=== PATIENT | male | born 1955 | race Hispanic/Latino ===

== ENCOUNTER 2021-07-17 16:26 | Inpatient (IN) | payer SELFPAY, OTHER ==
--- NOTE | 2021-07-17 17:14 | Emergency Department Report ---
HPI - General Chief Complaint: Abdominal Pain Time Seen by Provider: 07/17/21 16:57 - HPI HPI: MSE 3 The patient is a 66-year-old male present with chief complaint of cough. The patient states for 1 week he has had a cough productive of green sputum and throat irritation. Patient admits to a fever of 100 F. Patient admits to occasional nausea vomiting. Patient states he has not been vaccinated against COVID. Patient denies known sick contacts. Patient denies rhinorrhea or shortness of breath. Patient denies any other complaints ED Past Medical Hx - Past Medical History Previous Medical History?: No - Surgical History Past Surgical History?: No - Family History Family history: no significant - Social History Smoking Status: Never Smoker Substance Use Type: None ED Review of Systems ROS: Stated complaint: ABDOMINAL PAIN Other details as noted in HPI Constitutional: fever Eyes: denies: eye pain ENT: denies: throat pain Respiratory: cough. denies: shortness of breath Cardiovascular: denies: chest pain Endocrine: no symptoms reported Gastrointestinal: nausea, vomiting. denies: abdominal pain Genitourinary: denies: dysuria Musculoskeletal: denies: back pain Neurological: denies: headache Physical Exam - Physical Exam Physical Exam: GENERAL: The patient is well-developed well-nourished male lying on stretcher not appearing to be in acute distress. [] HEENT: Normocephalic. Atraumatic. Extraocular motions are intact. Patient has moist mucous membranes. NECK: Supple. Trachea midline CHEST/LUNGS: Clear to auscultation. There is no respiratory distress noted. HEART/CARDIOVASCULAR: Regular. There is no tachycardia. There is no gallop rub or murmur. ABDOMEN: Abdomen is soft, nontender. Patient has normal bowel sounds. There is no abdominal distention. SKIN: There is no rash. There is no edema. There is no diaphoresis. NEURO: The patient is awake, alert, and oriented. The patient is cooperative. The patient has no focal neurologic deficits. The patient has normal speech. GCS 15 There is no evidence of acute injury. ED Medical Decision Making - Lab Data Result diagrams: 07/17/21 17:28 07/17/21 19:01 Laboratory Tests 07/17/21 07/17/21 07/17/21 17:28 17:28 17:28 WBC 5.0 RBC 4.92 Hgb 15.5 H Hct 46.1 H MCV 94 MCH 32 MCHC 34 RDW 12.7 L Plt Count 244 Add Manual Diff Complete Total Counted 100 Seg Neuts % (Manual) 89.0 H Band Neutrophils % 1.0 Lymphocytes % (Manual) 7.0 L Reactive Lymphs % (Man) 0 Monocytes % (Manual) 3.0 Eosinophils % (Manual) 0 Basophils % (Manual) 0 Metamyelocytes % 0 Myelocytes % 0 Promyelocytes % 0 Blast Cells % 0 Nucleated RBC % Not Reportable Seg Neutrophils # Man 4.5 Band Neutrophils # 0.1 Lymphocytes # (Manual) 0.4 L Abs React Lymphs (Man) 0.0 Monocytes # (Manual) 0.2 Eosinophils # (Manual) 0.0 Basophils # (Manual) 0.0 Metamyelocytes # 0.0 Myelocytes # 0.0 Promyelocytes # 0.0 Blast Cells # 0.0 WBC Morphology Not Reportable TNR Hypersegmented Neuts Not Reportable Hyposegmented Neuts Not Reportable Hypogranular Neuts Not Reportable Smudge Cells Not Reportable Toxic Granulation Not Reportable Toxic Vacuolation Not Reportable Dohle Bodies Not Reportable Pelger-Huet Anomaly Not Reportable Alyssa Rods Not Reportable Platelet Estimate Not Reportable Clumped Platelets Not Reportable Plt Clumps, EDTA Not Reportable Large Platelets Not Reportable Giant Platelets Not Reportable Platelet Satelliting Not Reportable Plt Morphology Comment Not Reportable RBC Morphology Not Reportable Dimorphic RBCs Not Reportable Polychromasia Not Reportable Hypochromasia Not Reportable Poikilocytosis Not Reportable Anisocytosis Few Microcytosis Not Reportable Macrocytosis Not Reportable Spherocytes Not Reportable Pappenheimer Bodies Not Reportable Sickle Cells Not Reportable Target Cells Not Reportable Tear Drop Cells Not Reportable Ovalocytes Not Reportable Helmet Cells Not Reportable [place] Bodies Not Reportable [place] Rings Not Reportable [place] Cells Not Reportable Bite Cells Not Reportable Crenated Cell Not Reportable Elliptocytes Not Reportable Acanthocytes (Spur) Not Reportable Rouleaux Not Reportable Hemoglobin C Crystals Not Reportable Schistocytes Not Reportable Malaria parasites Not Reportable Christiano Bodies Not Reportable Hem Pathologist Commnt No D-Dimer Sodium 133 L Potassium 3.7 Chloride 95.3 L Carbon Dioxide 24 Anion Gap 17 BUN 18 Creatinine 0.9 Estimated GFR > 60 BUN/Creatinine Ratio 20 Glucose 121 H Calcium 8.5 Total Bilirubin 0.70 AST 48 H ALT 39 Alkaline Phosphatase 90 Lactate Dehydrogenase C-Reactive Protein Total Protein 7.2 Albumin 3.3 L Albumin/Globulin Ratio 0.8 07/17/21 07/17/21 19:01 19:01 WBC RBC Hgb Hct MCV MCH MCHC RDW Plt Count Add Manual Diff Total Counted Seg Neuts % (Manual) Band Neutrophils % Lymphocytes % (Manual) Reactive Lymphs % (Man) Monocytes % (Manual) Eosinophils % (Manual) Basophils % (Manual) Metamyelocytes % Myelocytes % Promyelocytes % Blast Cells % Nucleated RBC % Seg Neutrophils # Man Band Neutrophils # Lymphocytes # (Manual) Abs React Lymphs (Man) Monocytes # (Manual) Eosinophils # (Manual) Basophils # (Manual) Metamyelocytes # Myelocytes # Promyelocytes # Blast Cells # WBC Morphology Hypersegmented Neuts Hyposegmented Neuts Hypogranular Neuts Smudge Cells Toxic Granulation Toxic Vacuolation Dohle Bodies Pelger-Huet Anomaly Alyssa Rods Platelet Estimate Clumped Platelets Plt Clumps, EDTA Large Platelets Giant Platelets Platelet Satelliting Plt Morphology Comment RBC Morphology Dimorphic RBCs Polychromasia Hypochromasia Poikilocytosis Anisocytosis Microcytosis Macrocytosis Spherocytes Pappenheimer Bodies Sickle Cells Target Cells Tear Drop Cells Ovalocytes Helmet Cells [place] Bodies [place] Rings Andrew Cells Bite Cells Crenated Cell Elliptocytes Acanthocytes (Spur) Rouleaux Hemoglobin C Crystals Schistocytes Malaria parasites Christiano Bodies Hem Pathologist Commnt D-Dimer 768.76 H Sodium Potassium Chloride Carbon Dioxide Anion Gap BUN Creatinine Estimated GFR BUN/Creatinine Ratio Glucose 108 H Calcium Total Bilirubin AST ALT Alkaline Phosphatase Lactate Dehydrogenase 629 H C-Reactive Protein 7.40 H Total Protein Albumin Albumin/Globulin Ratio - Radiology Data Radiology results: report reviewed (Chest x-ray), image reviewed (Chest x-ray) interpreted by me: Chest [id number] bilateral infiltrates. No pneumothorax [facility] [address] [place] [address] XRay Report Signed Patient: WILMA ANGELES MR#: [id number] : 1955 Acct:[id number] Age/Sex: 66 / M ADM Date: 07/17/21 Loc: ED Attending Dr: Ordering Physician: GUIDO VELIZ MD Date of Service: 07/17/21 Procedure(s): XR chest routine 2V Accession Number(s): [id number] cc: GUIDO VELIZ MD Fluoro Time In Minutes: CHEST 2 VIEWS INDICATION / CLINICAL INFORMATION: Cough. COMPARISON: None available. FINDINGS: SUPPORT DEVICES: None. HEART / MEDIASTINUM: No significant abnormality. LUNGS / PLEURA: Moderate multifocal str eaky bilateral parenchymal disease No pneumothorax. ADDITIONAL FINDINGS: No significant additional findings. IMPRESSION: 1. Moderate bilateral Covid pneumonia Signer Name: Mirza Mishra MD Signed: 07/17/2021 5:34 PM Workstation Name: [id number] Transcribed By: TL Dictated By: Mirza Mishra MD Electronically Authenticated By: Mirza Mishra MD Signed Date/Time: 07/17/211733 DD/ 32 TD/TT: Print Cancel - Differential Diagnosis Pneumonia, bronchitis, COVID Critical care attestation.: If time is entered above; I have spent that time in minutes in the direct care of this critically ill patient, excluding procedure time. ED Disposition Clinical Impression: Suspected COVID-19 virus infection, Bilateral pneumonia, Hypoxia Disposition: ADMITTED INPATIENT Is pt being admited?: Yes Does the pt Need Aspirin: No Condition: Fair Instructions: Bacterial Pneumonia (ED) Time of Disposition: 19:03 (Hospitalist called (Dr. Monk))
--- NOTE | 2021-07-17 17:38 | XRay Report ---
CHEST 2 VIEWS INDICATION / CLINICAL INFORMATION: Cough. COMPARISON: None available. FINDINGS: SUPPORT DEVICES: None. HEART / MEDIASTINUM: No significant abnormality. LUNGS / PLEURA: Moderate multifocal streaky bilateral parenchymal disease No pneumothorax. ADDITIONAL FINDINGS: No significant additional findings. IMPRESSION: 1. Moderate bilateral Covid pneumonia Signer Name: Mirza Mishra MD Signed: 07/17/2021 5:34 PM Workstation Name: [id number]
[2021-07-17] MEDS: BENZONATATE 100 MG CAP PO ONE ×2 (17:49→21:51)
[2021-07-17 18:22] LABS: Hematocrit 46.1 % (35.5-45.6); Hemoglobin 15.5 gm/dl (11.8-15.2); Mean Corpuscular HGB Conc 34 % (32-34); Mean Corpuscular Volume 94 fl (84-94); Platelet Count 244 K/mm3 (140-440); Red Blood Count 4.92 M/mm3 (3.65-5.03); Red Cell Distribution Width 12.7 % (13.2-15.2)
[2021-07-17 18:42] LABS: Alanine Aminotransferase 39 units/L (7-56); Albumin 3.3 g/dL (3.9-5); BUN/Creatinine Ratio 20; Blood Urea Nitrogen 18 mg/dL (9-20); Calcium 8.5 mg/dL (8.4-10.2); Hemolysis Index 1
[2021-07-17] MEDS ORDERED: dexAMETHasone 20 MG/5 ML VIAL IV ONE ×2 (19:01→22:15)
[2021-07-17] MEDS ORDERED: cefTRIAXone/NS 1 GM/50 ML 1 GM/50 ML BAG IV ONE ×2 (19:01→22:15)
[2021-07-17] MEDS ORDERED: AZITHROMYCIN/NS 500 MG/250 ML 500 MG/250 ML BAG IV ONE ×2 (19:01→22:00)
[2021-07-17 19:19] LABS: Anisocytosis Few; Band Neutrophils # (Manual) 0.1 K/mm3; Basophils % (Manual) 0 % (0.0-1.8); Eosinophils % (Manual) 0 % (0.0-4.3); Total Cells Counted 100
[2021-07-17 20:01] LABS: C-Reactive Protein 7.4 mg/dL (0.00-1.30)
[2021-07-17] MEDS ORDERED: BENZONATATE 100 MG CAP PO ONE (22:15)
[2021-07-17] MEDS ORDERED: ONDANSETRON 4 MG/2 ML INJ IV PRN (22:25)
[2021-07-17] MEDS ORDERED: ACETAMINOPHEN 325 MG TAB PO PRN (22:25)
--- NOTE | 2021-07-17 22:25 | History and Physical Report ---
History of Present Illness Date of examination: 07/17/21 Date of admission: 07/17/21 19:11 Chief complaint: Fever and cough for 1 week History of present illness: 66-year-old male with no significant past medical history comes in for fever and cough of 1 week duration. Cough productive greenish sputum. Also sore throat. Patient also admits to occasional nausea and vomiting. Patient has not been vaccinated. No loss of smell or taste. No shortness of breath. No nasal congestion. No chest pain. No chest pain. - Past Medical History Previous Medical History?: No - Surgical History Past Surgical History?: No - Family History Family history: no significant - Social History Smoking Status: Never Smoker Substance Use Type: None Review of Systems ROS: Stated complaint: ABDOMINAL PAIN Other details as noted in HPI Constitutional: fever Eyes: denies: eye pain ENT: denies: throat pain Respiratory: cough. denies: shortness of breath Cardiovascular: denies: chest pain Endocrine: no symptoms reported Gastrointestinal: nausea, vomiting. denies: abdominal pain Genitourinary: denies: dysuria Musculoskeletal: denies: back pain Neurological: denies: headache Medications and Allergies Allergies Allergy/AdvReac Type Severity Reaction Status Date / Time No Known Allergies Allergy Unverified 07/17/21 16:34 Active Meds: Active Medications Azithromycin (Zithromax/Ns) 500 mg in 250 mls @ 250 mls/hr IV ONCE ONE; Protocol Stop: 07/17/21 22:59 Ceftriaxone Sodium (Rocephin/Ns 1 Gm/50 Ml) 1 gm in 50 mls @ 100 mls/hr IV ONCE ONE; Protocol Stop: 07/17/21 22:44 Exam - Constitutional Vitals: Temp Pulse Resp BP Pulse Ox 99.2 F 73 17 122/75 91 07/17/21 21:45 07/17/21 21:45 07/17/21 21:45 07/17/21 21:45 07/17/21 22:10 General appearance: Present: no acute distress, well-nourished - EENT Eyes: Present: PERRL ENT: hearing intact, clear oral mucosa - Neck Neck: Present: supple, normal ROM - Respiratory Respiratory effort: normal Respiratory: bilateral: CTA, negative: rhonchi (Scattered) - Cardiovascular Heart rate: 78 Rhythm: regular Heart Sounds: Present: S1 & S2. Absent: rub, click - Extremities Extremities: pulses symmetrical, No edema Peripheral Pulses: within normal limits - Abdominal General gastrointestinal: Present: soft, non-tender, non-distended, normal bowel sounds Male genitourinary: Present: normal - Integumentary Integumentary: Present: clear, warm, dry - Musculoskeletal Musculoskeletal: gait normal, strength equal bilaterally - Psychiatric Psychiatric: appropriate mood/affect, intact judgment & insight - Neurologic Neurologic: CNII-XII intact, moves all extremities Results - Labs CBC & Chem 7: 07/18/21 04:03 07/18/21 04:03 Labs: Laboratory Last Values WBC 5.0 K/mm3 (4.5-11.0) 07/17/21 17: RBC 4.92 M/mm3 (3.65-5.03) 07/17/21 17: Hgb 15.5 gm/dl (11.8-15.2) H 07/17/21 17:28 Hct 46.1 % (35.5-45.6) H 07/17/21 17:28 MCV 94 fl (84-94) 07/17/21 17:28 MCH 32 pg (28-32) 07/17/21 17: MCHC 34 % (32-34) 07/17/21 17: RDW 12.7 % (13.2-15.2) L 07/17/21 17:28 Plt Count 244 K/mm3 (140-440) 07/17/21 17:28 Add Manual Diff Complete 07/17/21 17: Total Counted 100 07/17/21 17:28 Seg Neuts % (Manual) 89.0 % (40.0-70.0) H 07/17/21 17:28 Band Neutrophils % 1.0 % 07/17/21 17:28 Lymphocytes % (Manual) 7.0 % (13.4-35.0) L 07/17/21 17:28 Reactive Lymphs % (Man) 0 % 07/17/21 17:28 Monocytes % (Manual) 3.0 % (0.0-7.3) 07/17/21 17:28 Eosinophils % (Manual) 0 % (0.0-4.3) 07/17/21 17: Basophils % (Manual) 0 % (0.0-1.8) 07/17/21 17:28 Metamyelocytes % 0 % 07/17/21 17:28 Myelocytes % 0 % 07/17/21 17:28 Promyelocytes % 0 % 07/17/21 17:28 Blast Cells % 0 % 07/17/21 17:28 Nucleated RBC % Not Reportable 07/17/21 17:28 Seg Neutrophils # Man 4.5 K/mm3 (1.8-7.7) 07/17/21 17:28 Band Neutrophils # 0.1 K/mm3 07/17/21 17:28 Lymphocytes # (Manual) 0.4 K/mm3 (1.2-5.4) L 07/17/21 17:28 Abs React Lymphs (Man) 0.0 K/mm3 07/17/21 17:28 Monocytes # (Manual) 0.2 K/mm3 (0.0-0.8) 07/17/21 17:28 Eosinophils # (Manual) 0.0 K/mm3 (0.0-0.4) 07/17/21 17:28 Basophils # (Manual) 0.0 K/mm3 (0.0-0.1) 07/17/21 17:28 Metamyelocytes # 0.0 K/mm3 07/17/21 17:28 Myelocytes # 0.0 K/mm3 07/17/21 17:28 Promyelocytes # 0.0 K/mm3 07/17/21 17:28 Blast Cells # 0.0 K/mm3 07/17/21 17:28 WBC Morphology Not Reportable 07/17/21 17:28 WBC Morphology TNR 07/17/21 17:28 Hypersegmented Neuts Not Reportable 07/17/21 17:28 Hyposegmented Neuts Not Reportable 07/17/21 17:28 Hypogranular Neuts Not Reportable 07/17/21 17:28 Smudge Cells Not Reportable 07/17/21 17:28 Toxic Granulation Not Reportable 07/17/21 17:28 Toxic Vacuolation Not Reportable 07/17/21 17:28 Dohle Bodies Not Reportable 07/17/21 17:28 Pelger-Huet Anomaly Not Reportable 07/17/21 17:28 Alyssa Rods Not Reportable 07/17/21 17:28 Platelet Estimate Not Reportable 07/17/21 17:28 Clumped Platelets Not Reportable 07/17/21 17:28 Plt Clumps, EDTA Not Reportable 07/17/21 17:28 Large Platelets Not Reportable 07/17/21 17:28 Giant Platelets Not Reportable 07/17/21 17:28 Platelet Satelliting Not Reportable 07/17/21 17:28 Plt Morphology Comment Not Reportable 07/17/21 17:28 RBC Morphology Not Reportable 07/17/21 17:28 Dimorphic RBCs Not Reportable 07/17/21 17:28 Polychromasia Not Reportable 07/17/21 17:28 Hypochromasia Not Reportable 07/17/21 17:28 Poikilocytosis Not Reportable 07/17/21 17:28 Anisocytosis Few 07/17/21 17:28 Microcytosis Not Reportable 07/17/21 17:28 Macrocytosis Not Reportable 07/17/21 17:28 Spherocytes Not Reportable 07/17/21 17:28 Pappenheimer Bodies Not Reportable 07/17/21 17:28 Sickle Cells Not Reportable 07/17/21 17:28 Target Cells Not Reportable 07/17/21 17:28 Tear Drop Cells Not Reportable 07/17/21 17:28 Ovalocytes Not Reportable 07/17/21 17:28 Helmet Cells Not Reportable 07/17/21 17:28 [place] Bodies Not Reportable 07/17/21 17:28 [place] Rings Not Reportable 07/17/21 17:28 [place] Cells Not Reportable 07/17/21 17:28 Bite Cells Not Reportable 07/17/21 17:28 Crenated Cell Not Reportable 07/17/21 17:28 Elliptocytes Not Reportable 07/17/21 17:28 Acanthocytes (Spur) Not Reportable 07/17/21 17:28 Rouleaux Not Reportable 07/17/21 17:28 Hemoglobin C Crystals Not Reportable 07/17/21 17:28 Schistocytes Not Reportable 07/17/21 17:28 Malaria parasites Not Reportable 07/17/21 17:28 Christiano Bodies Not Reportable 07/17/21 17:28 Hem Pathologist Commnt No 07/17/21 17:28 D-Dimer 768.76 ng/mlDDU (0-234) H 07/17/21 19:01 Sodium 133 mmol/L (137-145) L 07/17/21 17:28 Potassium 3.7 mmol/L (3.6-5.0) 07/17/21 17:28 Chloride 95.3 mmol/L (98-107) L 07/17/21 17:28 Carbon Dioxide 24 mmol/L (22-30) 07/17/21 17:28 Anion Gap 17 mmol/L 07/17/21 17:28 BUN 18 mg/dL (9-20) 07/17/21 17:28 Creatinine 0.9 mg/dL (0.8-1.3) 07/17/21 17:28 Estimated GFR > 60 ml/min 07/17/21 17:28 BUN/Creatinine Ratio 20 % 07/17/21 17:28 Glucose 108 mg/dL (75-100) H 07/17/21 19:01 Calcium 8.5 mg/dL (8.4-10.2) 07/17/21 17:28 Ferritin 4694.0 ng/mL (30.0-300.0) H 07/17/21 19:01 Total Bilirubin 0.70 mg/dL (0.1-1.2) 07/17/21 17:28 AST 48 units/L (5-40) H 07/17/21 17:28 ALT 39 units/L (7-56) 07/17/21 17:28 Alkaline Phosphatase 90 units/L (35-129) 07/17/21 17:28 Lactate Dehydrogenase 629 units/L (91-180) H 07/17/21 19:01 C-Reactive Protein 7.40 mg/dL (0.00-1.30) H 07/17/21 19:01 Total Protein 7.2 g/dL (6.3-8.2) 07/17/21 17:28 Albumin 3.3 g/dL (3.9-5) L 07/17/21 17:28 Albumin/Globulin Ratio 0.8 % 07/17/21 17:28 Microbiology: Microbiology 07/17/21 17:28 Peripheral/Venous Blood Culture - Preliminary Culture in Progress 07/17/21 17:28 Peripheral/Venous Blood Culture - Preliminary Culture in Progress - Imaging and Cardiology Imaging and Cardiology: Chest x-ray Moderate bilateral Covid pneumonia Assessment and Plan Advance Directives: Yes (Full code) VTE prophylaxis?: Chemical Plan of care discussed with patient/family: Yes - Patient Problems (1) Acute respiratory failure with hypoxia Current Visit: Yes Status: Acute Plan to address problem: Oxygen supplementation as necessary. Patient is on 3 L nasal cannula oxygen (2) SIRS (systemic inflammatory response syndrome) Current Visit: Yes Status: Acute Plan to address problem: All inflammatory markers I am clear increased including D-dimer which is 768, ferritin is 4694 and LDH is 629 consistent with systemic inflammatory response syndrome (3) Bilateral pneumonia Current Visit: Yes Status: Acute Qualifiers: Aspiration pneumonia type: due to regurgitated food Plan to address problem: Patient initiated on IV Zithromax and IV Rocephin To discontinue if procalcitonin is normal and Covid positive (4) Suspected COVID-19 virus infection Current Visit: Yes Status: Acute Plan to address problem: Covid PCR in a.m. Patient started on IV Decadron 8 mg every 24 hours (5) Hyponatremia Current Visit: Yes Status: Acute Plan to address problem: IV normal saline for now (6) Transaminitis Current Visit: Yes Status: Acute Plan to address problem: Possible Covid related Check acute hepatitis profile (7) DVT prophylaxis Current Visit: Yes Status: Acute Plan to address problem: On anticoagulation GI prophylaxis (8) Advance care planning Current Visit: Yes Status: Acute Plan to address problem: Disease education conducted: Care plan 80 discussed, diagnosis discussed, patient is full code came, patient acknowledges understanding and agreement with care plan +30 minutes
[2021-07-17] MEDS ORDERED: oxyCODONE /ACETAMINOPHEN 5-325MG TAB PO PRN (22:27)
[2021-07-17] MEDS ORDERED: METOCLOPRAMIDE 10 MG/2 ML INJ IV PRN (22:27)
[2021-07-17] MEDS ORDERED: SODIUM CHLORIDE 0.9% 1000 ML 1,000 ML IV SCH (22:30)
[2021-07-17] MEDS: FAMOTIDINE 20 MG TAB PO SCH (23:34)
[2021-07-18 05:41] LABS: Basophils % (Auto) 0.2 % (0.0-1.8); Hemoglobin 13.9 gm/dl (11.8-15.2); Lymphocytes # (Auto) 0.4 K/mm3 (1.2-5.4); Lymphocytes % (Auto) 11.3 % (13.4-35.0); Mean Corpuscular HGB Conc 34 % (32-34); Mean Corpuscular Volume 93 fl (84-94); Monocytes # (Auto) 0.2 K/mm3 (0.0-0.8); Monocytes % (Auto) 6.1 % (0.0-7.3); Platelet Count 262 K/mm3 (140-440); Red Blood Count 4.41 M/mm3 (3.65-5.03); Red Cell Distribution Width 12.4 % (13.2-15.2)
[2021-07-18 06:02] LABS: Alanine Aminotransferase 34 units/L (7-56); Albumin 2.8 g/dL (3.9-5); BUN/Creatinine Ratio 23; Blood Urea Nitrogen 21 mg/dL (9-20); Calcium 7.9 mg/dL (8.4-10.2); Hemolysis Index 4
--- NOTE | 2021-07-18 07:58 | Progress Note ---
Assessment and Plan Assessment and plan: #Acute hypoxic respiratory failure #Bilateral pneumonia #COVID-19 PUI -Patient not requiring supplemental oxygen when evaluated today -Chest x-ray showed bilateral pneumonia -Continue with Cipro and Rocephin for now -Continue dexamethasone -Coronavirus PCR collected -D-dimer, LDH, CRP and ferritin elevated #Elevated D-dimer -CTA of chest ordered -Continue Lovenox for DVT prophylaxis #Oral thrush -Nystatin swish and swallow ordered -HIV test ordered, patient agreeable Disposition Plan: continue medical management History Interval history: No acute events overnight. Patient reports not having shortness of breath, chest pain, odynophagia, nausea, vomiting or diarrhea since admission. Hospitalist Physical - Physical exam Narrative exam: GENERAL: Thin male. Sitting on the side of the bed in no acute distress. HEENT: Thrush on tongue. NECK: Supple. CHEST/LUNGS: CTAB on room air HEART/CARDIOVASCULAR: RRR. No murmur, rubs or gallops appreciated. ABDOMEN: +BS. NT/ND. SKIN: No rashes noted. NEURO: No focal motor deficit. Follows all commands. MUSCULOSKELETAL: No joint effusion EXTREMITIES: No cyanosis, clubbing or edema. PSYCH: Cooperative. - Constitutional Vitals: Temp Pulse Resp BP Pulse Ox 97.9 F 66 16 100/73 95 07/18/21 06:58 07/18/21 06:58 07/18/21 06:58 07/18/21 06:58 07/18/21 06:58 General appearance: Present: no acute distress, well-nourished Results - Labs CBC & Chem 7: 07/18/21 04:03 07/18/21 04:03 Labs: Laboratory Last Values WBC 3.7 K/mm3 (4.5-11.0) L 07/18/21 04:03 RBC 4.41 M/mm3 (3.65-5.03) 07/18/21 04:03 Hgb 13.9 gm/dl (11.8-15.2) 07/18/21 04:03 Hct 41.0 % (35.5-45.6) 07/18/21 04:03 MCV 93 fl (84-94) 07/18/21 04:03 MCH 32 pg (28-32) 07/18/21 04:03 MCHC 34 % (32-34) 07/18/21 04:03 RDW 12.4 % (13.2-15.2) L 07/18/21 04:03 Plt Count 262 K/mm3 (140-440) 07/18/21 04:03 Lymph % (Auto) 11.3 % (13.4-35.0) L 07/18/21 04:03 [place] % (Auto) 6.1 % (0.0-7.3) 07/18/21 04:03 Eos % (Auto) 0.0 % (0.0-4.3) 07/18/21 04:03 Baso % (Auto) 0.2 % (0.0-1.8) 07/18/21 04:03 Lymph # (Auto) 0.4 K/mm3 (1.2-5.4) L 07/18/21 04:03 [place]irt # (Auto) 0.2 K/mm3 (0.0-0.8) 07/18/21 04:03 Eos # (Auto) 0.0 K/mm3 (0.0-0.4) 07/18/21 04:03 Baso # (Auto) 0.0 K/mm3 (0.0-0.1) 07/18/21 04:03 Add Manual Diff Complete 07/17/21 17:28 Total Counted 100 07/17/21 17:28 Seg Neutrophils % 82.4 % (40.0-70.0) H 07/18/21 04:03 Seg Neuts % (Manual) 89.0 % (40.0-70.0) H 07/17/21 17:28 Band Neutrophils % 1.0 % 07/17/21 17:28 Lymphocytes % (Manual) 7.0 % (13.4-35.0) L 07/17/21 17:28 Reactive Lymphs % (Man) 0 % 07/17/21 17:28 Monocytes % (Manual) 3.0 % (0.0-7.3) 07/17/21 17:28 Eosinophils % (Manual) 0 % (0.0-4.3) 07/17/21 17:28 Basophils % (Manual) 0 % (0.0-1.8) 07/17/21 17:28 Metamyelocytes % 0 % 07/17/21 17:28 Myelocytes % 0 % 07/17/21 17:28 Promyelocytes % 0 % 07/17/21 17:28 Blast Cells % 0 % 07/17/21 17:28 Nucleated RBC % Not Reportable 07/17/21 17:28 Seg Neutrophils # 3.0 K/mm3 (1.8-7.7) 07/18/21 04:03 Seg Neutrophils # Man 4.5 K/mm3 (1.8-7.7) 07/17/21 17:28 Band Neutrophils # 0.1 K/mm3 07/17/21 17:28 Lymphocytes # (Manual) 0.4 K/mm3 (1.2-5.4) L 07/17/21 17:28 Abs React Lymphs (Man) 0.0 K/mm3 07/17/21 17:28 Monocytes # (Manual) 0.2 K/mm3 (0.0-0.8) 07/17/21 17:28 Eosinophils # (Manual) 0.0 K/mm3 (0.0-0.4) 07/17/21 17:28 Basophils # (Manual) 0.0 K/mm3 (0.0-0.1) 07/17/21 17:28 Metamyelocytes # 0.0 K/mm3 07/17/21 17:28 Myelocytes # 0.0 K/mm3 07/17/21 17:28 Promyelocytes # 0.0 K/mm3 07/17/21 17:28 Blast Cells # 0.0 K/mm3 07/17/21 17:28 WBC Morphology Not Reportable 07/17/21 17:28 WBC Morphology TNR 07/17/21 17:28 Hypersegmented Neuts Not Reportable 07/17/21 17:28 Hyposegmented Neuts Not Reportable 07/17/21 17:28 Hypogranular Neuts Not Reportable 07/17/21 17:28 Smudge Cells Not Reportable 07/17/21 17:28 Toxic Granulation Not Reportable 07/17/21 17:28 Toxic Vacuolation Not Reportable 07/17/21 17:28 Dohle Bodies Not Reportable 07/17/21 17:28 Pelger-Huet Anomaly Not Reportable 07/17/21 17:28 Alyssa Rods Not Reportable 07/17/21 17:28 Platelet Estimate Not Reportable 07/17/21 17:28 Clumped Platelets Not Reportable 07/17/21 17:28 Plt Clumps, EDTA Not Reportable 07/17/21 17:28 Large Platelets Not Reportable 07/17/21 17:28 Giant Platelets Not Reportable 07/17/21 17:28 Platelet Satelliting Not Reportable 07/17/21 17:28 Plt Morphology Comment Not Reportable 07/17/21 17:28 RBC Morphology Not Reportable 07/17/21 17:28 Dimorphic RBCs Not Reportable 07/17/21 17:28 Polychromasia Not Reportable 07/17/21 17:28 Hypochromasia Not Reportable 07/17/21 17:28 Poikilocytosis Not Reportable 07/17/21 17:28 Anisocytosis Few 07/17/21 17:28 Microcytosis Not Reportable 07/17/21 17:28 Macrocytosis Not Reportable 07/17/21 17:28 Spherocytes Not Reportable 07/17/21 17:28 Pappenheimer Bodies Not Reportable 07/17/21 17:28 Sickle Cells Not Reportable 07/17/21 17:28 Target Cells Not Reportable 07/17/21 17:28 Tear Drop Cells Not Reportable 07/17/21 17:28 Ovalocytes Not Reportable 07/17/21 17:28 Helmet Cells Not Reportable 07/17/21 17:28 [place] Bodies Not Reportable 07/17/21 17:28 [place] Rings Not Reportable 07/17/21 17:28 [place] Cells Not Reportable 07/17/21 17:28 Bite Cells Not Reportable 07/17/21 17:28 Crenated Cell Not Reportable 07/17/21 17:28 Elliptocytes Not Reportable 07/17/21 17:28 Acanthocytes (Spur) Not Reportable 07/17/21 17:28 Rouleaux Not Reportable 07/17/21 17:28 Hemoglobin C Crystals Not Reportable 07/17/21 17:28 Schistocytes Not Reportable 07/17/21 17:28 Malaria parasites Not Reportable 07/17/21 17:28 Christiano Bodies Not Reportable 07/17/21 17:28 Hem Pathologist Commnt No 07/17/21 17:28 D-Dimer 768.76 ng/mlDDU (0-234) H 07/17/21 19:01 Sodium 130 mmol/L (137-145) L 07/18/21 04:03 Potassium 4.3 mmol/L (3.6-5.0) 07/18/21 04:03 Chloride 95.2 mmol/L (98-107) L 07/18/21 04:03 Carbon Dioxide 24 mmol/L (22-30) 07/18/21 04:03 Anion Gap 15 mmol/L 07/18/21 04:03 BUN 21 mg/dL (9-20) H 07/18/21 04:03 Creatinine 0.9 mg/dL (0.8-1.3) 07/18/21 04:03 Estimated GFR > 60 ml/min 07/18/21 04:03 BUN/Creatinine Ratio 23 % 07/18/21 04:03 Glucose 151 mg/dL (75-100) H 07/18/21 04:03 Calcium 7.9 mg/dL (8.4-10.2) L 07/18/21 04:03 Ferritin 4694.0 ng/mL (30.0-300.0) H 07/17/21 19:01 Total Bilirubin 0.50 mg/dL (0.1-1.2) 07/18/21 04:03 AST 43 units/L (5-40) H 07/18/21 04:03 ALT 34 units/L (7-56) 07/18/21 04:03 Alkaline Phosphatase 78 units/L (35-129) 07/18/21 04:03 Lactate Dehydrogenase 629 units/L (91-180) H 07/17/21 19:01 C-Reactive Protein 7.40 mg/dL (0.00-1.30) H 07/17/21 19:01 Total Protein 6.2 g/dL (6.3-8.2) L 07/18/21 04:03 Albumin 2.8 g/dL (3.9-5) L 07/18/21 04:03 Albumin/Globulin Ratio 0.8 % 07/18/21 04:03 Microbiology: Microbiology 07/17/21 17:28 Peripheral/Venous Blood Culture - Preliminary Culture in Progress 07/17/21 17:28 Peripheral/Venous Blood Culture - Preliminary Culture in Progress Active Medications - Current Medications Current Medications: Generic Name Dose Route Start Last Admin Trade Name Freq PRN Reason Stop Dose Admin Acetaminophen 650 mg 07/17/21 22:25 Acetaminophen 325 Mg Tab PO Q4H PRN Pain MILD(1-3)/Fever >100.5/KAUR Dexamethasone 8 mg 07/18/21 10:00 Dexamethasone 4 Mg/Ml Vial IV Q24HR [facility] Enoxaparin Sodium 40 mg 07/18/21 10:00 Enoxaparin 40 Mg/0.4 Ml Inj SUB-Q QDAY [facility] Famotidine 20 mg 07/17/21 23:00 07/17/21 23:34 Famotidine 20 Mg Tab PO 20 mg BID [facility] Administration Sodium Chloride 1,000 mls @ 100 mls/hr 07/17/21 22:30 Nacl 0.9% 1000 Ml IV 07/18/21 09:00 DIRECT [facility] Azithromycin 500 mg in 250 mls @ 250 mls/hr 07/18/21 10:00 Zithromax/Ns IV Q24HR [facility] Ceftriaxone Sodium 2 gm in 100 mls @ 200 mls/hr 07/18/21 10:00 Rocephin/Ns 2 Gm/100 Ml IV Q24HR [facility] Protocol Metoclopramide HCl 10 mg 07/17/21 22:27 Metoclopramide 10 Mg/2 Ml Inj IV Q6H PRN Nausea And Vomiting Ondansetron HCl 4 mg 07/17/21 22:25 Ondansetron 4 Mg/2 Ml Inj IV Q8H PRN Nausea And Vomiting Oxycodone/Acetaminophen 1 tab 07/17/21 22:27 Oxycodone /Acetaminophen 5-325mg Tab PO Q6H PRN Pain, Moderate (4-6) Sodium Chloride 10 ml 07/18/21 10:00 Sodium Chloride 0.9% 10 Ml Flush Syringe IV BID [facility] Sodium Chloride 10 ml 07/17/21 22:25 Sodium Chloride 0.9% 10 Ml Flush Syringe IV PRN PRN LINE FLUSH
[2021-07-18] MEDS: cefTRIAXone/NS 2 GM/100 ML 2 GM/100 ML BAG IV SCH (10:58)
[2021-07-18] MEDS: dexAMETHasone 4 MG/ML VIAL IV SCH (10:58)
[2021-07-18] MEDS: ENOXAPARIN 40 MG/0.4 ML INJ SUB-Q SCH (10:59)
[2021-07-18] MEDS: FAMOTIDINE 20 MG TAB PO SCH (10:59)
[2021-07-18] MEDS: AZITHROMYCIN/NS 500 MG/250 ML 500 MG/250 ML BAG IV SCH (11:24)
--- NOTE | 2021-07-18 14:35 | Cat Scan Report ---
CTA CHEST WITH CONTRAST INDICATION / CLINICAL INFORMATION: Cough. Elevated d-dimer TECHNIQUE: Axial CT images were obtained through the chest after injection of 350 cc Omnipaque 350 IV contrast. 3 plane MIP and/or 3D reconstructions were produced. All CT scans at this location are per formed using CT dose reduction for ALARA by means of automated exposure control. COMPARISON: None available. FINDINGS: PULMONARY ARTERIES: Adequate opacification bilaterally without intraluminal filling defect to suggest acute PTE. THORACIC AORTA: No significant abnormality. HEART: There is mild cardiomegaly. CORONARY ARTERY CALCIFICATION: Minimal MEDIASTINUM / SEGUNDO: No significant abnormality. PLEURA: No pleural effusion. No pneumothorax. LUNGS: There are moderately severe patchy parenchymal opacities throughout both lungs, predominantly groundglass in appearance. Scattered mild areas of consolidation and subpleural bands are present. Th ere is mild associated septal thickening. ADDITIONAL FINDINGS: None. UPPER ABDOMEN: No acute findings. SKELETAL STRUCTURES: No significant osseous abnormality. IMPRESSION: 1. No CT evidence for pulmonary embolism. 2. Moderately severe patchy parenchymal opacities throughout both lungs are probably related to atypi wade pneumonia, including viral causes. Signer Name: Kosta Magallanes MD Signed: 07/18/2021 2:30 PM Workstation Name: [id number]
[2021-07-18] MEDS: NYSTATIN 500,000 UNIT/5 ML ORAL LIQD PO SCH ×2 (16:16→23:38)
[2021-07-19] MEDS: FAMOTIDINE 20 MG TAB PO SCH ×2 (03:40→09:55)
[2021-07-19] MEDS: NYSTATIN 500,000 UNIT/5 ML ORAL LIQD PO SCH ×4 (03:43→18:03)
[2021-07-19 05:26] LABS: BUN/Creatinine Ratio 30; Blood Urea Nitrogen 24 mg/dL (9-20); Calcium 8.3 mg/dL (8.4-10.2); Hemolysis Index 3
[2021-07-19] MEDS: cefTRIAXone/NS 2 GM/100 ML 2 GM/100 ML BAG IV SCH (09:55)
[2021-07-19] MEDS: dexAMETHasone 4 MG/ML VIAL IV SCH (09:55)
[2021-07-19] MEDS: AZITHROMYCIN/NS 500 MG/250 ML 500 MG/250 ML BAG IV SCH (10:43)
[2021-07-19] MEDS: ENOXAPARIN 40 MG/0.4 ML INJ SUB-Q SCH (10:51)
--- NOTE | 2021-07-19 17:44 | Progress Note ---
Assessment and Plan Assessment and plan: --Acute hypoxic respiratory failure On 2 L supplemental oxygen --Bilateral pneumonia Pro Calcitonin level is high Continue empiric antibiotics, Follow cultures, Oxygen titrate O2 sats to more than 90% --COVID-19 PUI/rosales PCR test is positive -Patient not requiring supplemental oxygen when evaluated today -Chest x-ray showed bilateral pneumonia -Continue with Cipro and Rocephin for now -Continue dexamethasone -Coronavirus PCR collected -D-dimer, LDH, CRP and ferritin elevated --Elevated D-dimer -CTA of chest negative for PE, multifocal/viral pneumonia Check lower extremity venous Doppler to rule out DVT --Oral thrush -Nystatin swish and swallow ordered -HIV test negative Disposition Plan: continue medical management We will closely monitor the patient and adjust management as needed Plan of care reviewed with the patient and his nurse Home oxygen evaluation Possible discharge in 1 to 2 days if stable History Interval history: I have seen and examined the patient at the bedside Patient's chart and medications reviewed Patient feels slightly better than yesterday Still has mild shortness of breath Hospitalist Physical - Constitutional Vitals: Temp Pulse Resp BP Pulse Ox 98.9 F 59 L 21 113/72 92 07/19/21 09:57 07/19/21 13:00 07/19/21 13:00 07/19/21 15:15 07/19/21 15:15 General appearance: Present: no acute distress, well-nourished - EENT Eyes: Present: PERRL, EOM intact - Neck Neck: Present: supple, normal ROM - Respiratory Respiratory effort: normal Respiratory: bilateral: diminished, rhonchi, negative: rales, wheezing - Cardiovascular Rhythm: regular Heart Sounds: Present: S1 & S2 - Extremities Extremities: no ischemia, No edema - Abdominal General gastrointestinal: soft, non-tender, non-distended, normal bowel sounds - Integumentary Integumentary: Present: clear, warm - Psychiatric Psychiatric: appropriate mood/affect, cooperative - Neurologic Neurologic: no focal deficits, moves all extremities Results - Labs CBC & Chem 7: 07/18/21 04:03 07/19/21 03:48 Labs: Laboratory Last Values WBC 3.7 K/mm3 (4.5-11.0) L 07/18/21 04:03 RBC 4.41 M/mm3 (3.65-5.03) 07/18/21 04:03 Hgb 13.9 gm/dl (11.8-15.2) 07/18/21 04:03 Hct 41.0 % (35.5-45.6) 07/18/21 04:03 MCV 93 fl (84-94) 07/18/21 04:03 MCH 32 pg (28-32) 07/18/21 04:03 MCHC 34 % (32-34) 07/18/21 04:03 RDW 12.4 % (13.2-15.2) L 07/18/21 04:03 Plt Count 262 K/mm3 (140-440) 07/18/21 04:03 Lymph % (Auto) 11.3 % (13.4-35.0) L 07/18/21 04:03 [place] % (Auto) 6.1 % (0.0-7.3) 07/18/21 04:03 Eos % (Auto) 0.0 % (0.0-4.3) 07/18/21 04:03 Baso % (Auto) 0.2 % (0.0-1.8) 07/18/21 04:03 Lymph # (Auto) 0.4 K/mm3 (1.2-5.4) L 07/18/21 04:03 [place] # (Auto) 0.2 K/mm3 (0.0-0.8) 07/18/21 04:03 Eos # (Auto) 0.0 K/mm3 (0.0-0.4) 07/18/21 04:03 Baso # (Auto) 0.0 K/mm3 (0.0-0.1) 07/18/21 04:03 Add Manual Diff Complete 07/17/21 17:28 Total Counted 100 07/17/21 17:28 Seg Neutrophils % 82.4 % (40.0-70.0) H 07/18/21 04:03 Seg Neuts % (Manual) 89.0 % (40.0-70.0) H 07/17/21 17:28 Band Neutrophils % 1.0 % 07/17/21 17:28 Lymphocytes % (Manual) 7.0 % (13.4-35.0) L 07/17/21 17:28 Reactive Lymphs % (Man) 0 % 07/17/21 17:28 Monocytes % (Manual) 3.0 % (0.0-7.3) 07/17/21 17:28 Eosinophils % (Manual) 0 % (0.0-4.3) 07/17/21 17:28 Basophils % (Manual) 0 % (0.0-1.8) 07/17/21 17:28 Metamyelocytes % 0 % 07/17/21 17:28 Myelocytes % 0 % 07/17/21 17:28 Promyelocytes % 0 % 07/17/21 17:28 Blast Cells % 0 % 07/17/21 17:28 Nucleated RBC % Not Reportable 07/17/21 17:28 Seg Neutrophils # 3.0 K/mm3 (1.8-7.7) 07/18/21 04:03 Seg Neutrophils # Man 4.5 K/mm3 (1.8-7.7) 07/17/21 17:28 Band Neutrophils # 0.1 K/mm3 07/17/21 17:28 Lymphocytes # (Manual) 0.4 K/mm3 (1.2-5.4) L 07/17/21 17:28 Abs React Lymphs (Man) 0.0 K/mm3 07/17/21 17:28 Monocytes # (Manual) 0.2 K/mm3 (0.0-0.8) 07/17/21 17:28 Eosinophils # (Manual) 0.0 K/mm3 (0.0-0.4) 07/17/21 17:28 Basophils # (Manual) 0.0 K/mm3 (0.0-0.1) 07/17/21 17:28 Metamyelocytes # 0.0 K/mm3 07/17/21 17:28 Myelocytes # 0.0 K/mm3 07/17/21 17:28 Promyelocytes # 0.0 K/mm3 07/17/21 17:28 Blast Cells # 0.0 K/mm3 07/17/21 17:28 WBC Morphology Not Reportable 07/17/21 17:28 WBC Morphology TNR 07/17/21 17:28 Hypersegmented Neuts Not Reportable 07/17/21 17:28 Hyposegmented Neuts Not Reportable 07/17/21 17:28 Hypogranular Neuts Not Reportable 07/17/21 17:28 Smudge Cells Not Reportable 07/17/21 17:28 Toxic Granulation Not Reportable 07/17/21 17:28 Toxic Vacuolation Not Reportable 07/17/21 17:28 Dohle Bodies Not Reportable 07/17/21 17:28 Pelger-Huet Anomaly Not Reportable 07/17/21 17:28 Alyssa Rods Not Reportable 07/17/21 17:28 Platelet Estimate Not Reportable 07/17/21 17:28 Clumped Platelets Not Reportable 07/17/21 17:28 Plt Clumps, EDTA Not Reportable 07/17/21 17:28 Large Platelets Not Reportable 07/17/21 17:28 Giant Platelets Not Reportable 07/17/21 17:28 Platelet Satelliting Not Reportable 07/17/21 17:28 Plt Morphology Comment Not Reportable 07/17/21 17:28 RBC Morphology Not Reportable 07/17/21 17:28 Dimorphic RBCs Not Reportable 07/17/21 17:28 Polychromasia Not Reportable 07/17/21 17:28 Hypochromasia Not Reportable 07/17/21 17:28 Poikilocytosis Not Reportable 07/17/21 17:28 Anisocytosis Few 07/17/21 17:28 Microcytosis Not Reportable 07/17/21 17:28 Macrocytosis Not Reportable 07/17/21 17:28 Spherocytes Not Reportable 07/17/21 17:28 Pappenheimer Bodies Not Reportable 07/17/21 17:28 Sickle Cells Not Reportable 07/17/21 17:28 Target Cells Not Reportable 07/17/21 17:28 Tear Drop Cells Not Reportable 07/17/21 17:28 Ovalocytes Not Reportable 07/17/21 17:28 Helmet Cells Not Reportable 07/17/21 17:28 [place] Bodies Not Reportable 07/17/21 17:28 [place] Rings Not Reportable 07/17/21 17:28 [place] Cells Not Reportable 07/17/21 17:28 Bite Cells Not Reportable 07/17/21 17:28 Crenated Cell Not Reportable 07/17/21 17:28 Elliptocytes Not Reportable 07/17/21 17:28 Acanthocytes (Spur) Not Reportable 07/17/21 17:28 Rouleaux Not Reportable 07/17/21 17:28 Hemoglobin C Crystals Not Reportable 07/17/21 17:28 Schistocytes Not Reportable 07/17/21 17:28 Malaria parasites Not Reportable 07/17/21 17:28 Christiano Bodies Not Reportable 07/17/21 17:28 Hem Pathologist Commnt No 07/17/21 17:28 D-Dimer 768.76 ng/mlDDU (0-234) H 07/17/21 19:01 Sodium 138 mmol/L (137-145) D 07/19/21 03:48 Potassium 3.9 mmol/L (3.6-5.0) 07/19/21 03:48 Chloride 99.4 mmol/L (98-107) 07/19/21 03:48 Carbon Dioxide 23 mmol/L (22-30) 07/19/21 03:48 Anion Gap 20 mmol/L 07/19/21 03:48 BUN 24 mg/dL (9-20) H 07/19/21 03:48 Creatinine 0.8 mg/dL (0.8-1.3) 07/19/21 03:48 Estimated GFR > 60 ml/min 07/19/21 03:48 BUN/Creatinine Ratio 30 % 07/19/21 03:48 Glucose 154 mg/dL (75-100) H 07/19/21 03:48 Calcium 8.3 mg/dL (8.4-10.2) L 07/19/21 03:48 Ferritin 4694.0 ng/mL (30.0-300.0) H 07/17/21 19:01 Total Bilirubin 0.50 mg/dL (0.1-1.2) 07/18/21 04:03 AST 43 units/L (5-40) H 07/18/21 04:03 ALT 34 units/L (7-56) 07/18/21 04:03 Alkaline Phosphatase 78 units/L (35-129) 07/18/21 04:03 Lactate Dehydrogenase 629 units/L (91-180) H 07/17/21 19:01 C-Reactive Protein 7.40 mg/dL (0.00-1.30) H 07/17/21 19:01 Total Protein 6.2 g/dL (6.3-8.2) L 07/18/21 04:03 Albumin 2.8 g/dL (3.9-5) L 07/18/21 04:03 Albumin/Globulin Ratio 0.8 % 07/18/21 04:03 Procalcitonin 0.27 ng/mL (<0.15) 07/17/21 19:01 Coronavirus (PCR) Positive (Negative) A 07/18/21 09:10 HIV 1&2 Antibody Rapid Non react (Non React) 07/18/21 15:28 HIV P24 Antigen Non react (Non React) 07/18/21 15:28 Microbiology: Microbiology 07/17/21 17:28 Peripheral/Venous Blood Culture - Preliminary NO GROWTH AFTER 24 HOURS 07/17/21 17:28 Peripheral/Venous Blood Culture - Preliminary NO GROWTH AFTER 24 HOURS Active Medications - Current Medications Current Medications: Generic Name Dose Route Start Last Admin Trade Name Freq PRN Reason Stop Dose Admin Acetaminophen 650 mg 07/17/21 22:25 Acetaminophen 325 Mg Tab PO Q4H PRN Pain MILD(1-3)/Fever >100.5/KAUR Azithromycin 500 mg 07/20/21 10:00 Azithromycin 250 Mg Tab PO 07/22/21 10:01 QDAY [facility] Protocol Dexamethasone 8 mg 07/18/21 10:00 07/19/21 09:55 Dexamethasone 4 Mg/Ml Vial IV 07/27/21 10:01 8 mg Q24HR [facility] Administration Enoxaparin Sodium 40 mg 07/18/21 10:00 07/19/21 10:51 Enoxaparin 40 Mg/0.4 Ml Inj SUB-Q 40 mg QDAY [facility] Administration Famotidine 20 mg 07/17/21 23:00 07/19/21 09:55 Famotidine 20 Mg Tab PO 20 mg BID [facility] Administration Ceftriaxone Sodium 2 gm in 100 mls @ 200 mls/hr 07/18/21 10:00 07/19/21 10:45 Rocephin/Ns 2 Gm/100 Ml IV 07/22/21 10:29 Infused Q24HR [facility] In[facility] Protocol Metoclopramide HCl 10 mg 07/17/21 22:27 Metoclopramide 10 Mg/2 Ml Inj IV Q6H PRN Nausea And Vomiting Nystatin 500,000 unit 07/18/21 14:00 07/19/21 15:19 Nystatin 500,000 Unit/5 Ml Oral Liqd PO 500,000 unit QID [facility] Administration Ondansetron HCl 4 mg 07/17/21 22:25 Ondansetron 4 Mg/2 Ml Inj IV Q8H PRN Nausea And Vomiting Oxycodone/Acetaminophen 1 tab 07/17/21 22:27 Oxycodone /Acetaminophen 5-325mg Tab PO Q6H PRN Pain, Moderate (4-6) Sodium Chloride 10 ml 07/18/21 10:00 07/19/21 09:55 Sodium Chloride 0.9% 10 Ml Flush Syringe IV 10 ml BID [facility] Administration Sodium Chloride 10 ml 07/17/21 22:25 07/19/21 03:43 Sodium Chloride 0.9% 10 Ml Flush Syringe IV 10 ml PRN PRN Administration LINE FLUSH
[2021-07-20] MEDS: NYSTATIN 500,000 UNIT/5 ML ORAL LIQD PO SCH ×5 (04:40→23:05)
[2021-07-20] MEDS: FAMOTIDINE 20 MG TAB PO SCH ×3 (04:40→23:05)
[2021-07-20] MEDS: dexAMETHasone 4 MG/ML VIAL IV SCH (11:16)
[2021-07-20] MEDS: AZITHROMYCIN 250 MG TAB PO SCH (11:17)
[2021-07-20] MEDS: ENOXAPARIN 40 MG/0.4 ML INJ SUB-Q SCH (11:17)
[2021-07-20] MEDS: cefTRIAXone/NS 2 GM/100 ML 2 GM/100 ML BAG IV SCH (11:18)
--- NOTE | 2021-07-20 13:52 | Progress Note ---
Assessment and Plan Assessment and plan: --Acute hypoxic respiratory failure On supplemental lung toxin 2 L Wean as tolerated Home O2 evaluation upon discharge --Bilateral pneumonia Pro Calcitonin level is high Continue empiric antibiotics Follow cultures --COVID-19 PUI/rosales PCR test is positive -Patient not requiring supplemental oxygen when evaluated today -Chest x-ray showed bilateral pneumonia -Continue with Cipro and Rocephin for now -Continue dexamethasone -Coronavirus PCR collected -D-dimer, LDH, CRP and ferritin elevated --Elevated D-dimer -CTA of chest negative for PE, multifocal/viral pneumonia Check lower extremity venous Doppler to rule out DVT --Oral thrush -Nystatin swish and swallow ordered -HIV negative test We will closely monitor the patient and adjust management as needed 6-minute walk test prior to discharge Home O2 evaluation prior to discharge Discharge in 1 to 2 days if stable Plan of care reviewed with the patient and his nurse History Interval history: I have seen and examined the patient at the bedside Patient's chart and medications reviewed Isolation precautions PPE protocols followed Patient is on 2 L of nasal cannula oxygen Saturating well feels better Hospitalist Physical - Constitutional Vitals: Temp Pulse Resp BP Pulse Ox 98.9 F 59 L 21 113/80 91 07/19/21 09:57 07/19/21 13:00 07/19/21 13:00 07/19/21 21:58 07/19/21 19:15 General appearance: Present: no acute distress, well-nourished - EENT Eyes: Present: PERRL, EOM intact - Neck Neck: Present: supple, normal ROM - Respiratory Respiratory effort: normal Respiratory: bilateral: diminished, rhonchi, negative: rales, wheezing - Cardiovascular Rhythm: regular Heart Sounds: Present: S1 & S2 - Extremities Extremities: no ischemia, No edema - Abdominal General gastrointestinal: soft, non-tender, non-distended, normal bowel sounds - Integumentary Integumentary: Present: clear, warm - Psychiatric Psychiatric: appropriate mood/affect, cooperative - Neurologic Neurologic: moves all extremities Results - Labs CBC & Chem 7: 07/18/21 04:03 07/19/21 03:48 Labs: Laboratory Last Values WBC 3.7 K/mm3 (4.5-11.0) L 07/18/21 04:03 RBC 4.41 M/mm3 (3.65-5.03) 07/18/21 04:03 Hgb 13.9 gm/dl (11.8-15.2) 07/18/21 04:03 Hct 41.0 % (35.5-45.6) 07/18/21 04:03 MCV 93 fl (84-94) 07/18/21 04:03 MCH 32 pg (28-32) 07/18/21 04:03 MCHC 34 % (32-34) 07/18/21 04:03 RDW 12.4 % (13.2-15.2) L 07/18/21 04:03 Plt Count 262 K/mm3 (140-440) 07/18/21 04:03 Lymph % (Auto) 11.3 % (13.4-35.0) L 07/18/21 04:03 [place] % (Auto) 6.1 % (0.0-7.3) 07/18/21 04:03 Eos % (Auto) 0.0 % (0.0-4.3) 07/18/21 04:03 Baso % (Auto) 0.2 % (0.0-1.8) 07/18/21 04:03 Lymph # (Auto) 0.4 K/mm3 (1.2-5.4) L 07/18/21 04:03 [place] # (Auto) 0.2 K/mm3 (0.0-0.8) 07/18/21 04:03 Eos # (Auto) 0.0 K/mm3 (0.0-0.4) 07/18/21 04:03 Baso # (Auto) 0.0 K/mm3 (0.0-0.1) 07/18/21 04:03 Add Manual Diff Complete 07/17/21 17:28 Total Counted 100 07/17/21 17:28 Seg Neutrophils % 82.4 % (40.0-70.0) H 07/18/21 04:03 Seg Neuts % (Manual) 89.0 % (40.0-70.0) H 07/17/21 17:28 Band Neutrophils % 1.0 % 07/17/21 17:28 Lymphocytes % (Manual) 7.0 % (13.4-35.0) L 07/17/21 17:28 Reactive Lymphs % (Man) 0 % 07/17/21 17:28 Monocytes % (Manual) 3.0 % (0.0-7.3) 07/17/21 17:28 Eosinophils % (Manual) 0 % (0.0-4.3) 07/17/21 17:28 Basophils % (Manual) 0 % (0.0-1.8) 07/17/21 17:28 Metamyelocytes % 0 % 07/17/21 17:28 Myelocytes % 0 % 07/17/21 17:28 Promyelocytes % 0 % 07/17/21 17:28 Blast Cells % 0 % 07/17/21 17:28 Nucleated RBC % Not Reportable 07/17/21 17:28 Seg Neutrophils # 3.0 K/mm3 (1.8-7.7) 07/18/21 04:03 Seg Neutrophils # Man 4.5 K/mm3 (1.8-7.7) 07/17/21 17:28 Band Neutrophils # 0.1 K/mm3 07/17/21 17:28 Lymphocytes # (Manual) 0.4 K/mm3 (1.2-5.4) L 07/17/21 17:28 Abs React Lymphs (Man) 0.0 K/mm3 07/17/21 17:28 Monocytes # (Manual) 0.2 K/mm3 (0.0-0.8) 07/17/21 17:28 Eosinophils # (Manual) 0.0 K/mm3 (0.0-0.4) 07/17/21 17:28 Basophils # (Manual) 0.0 K/mm3 (0.0-0.1) 07/17/21 17:28 Metamyelocytes # 0.0 K/mm3 07/17/21 17:28 Myelocytes # 0.0 K/mm3 07/17/21 17:28 Promyelocytes # 0.0 K/mm3 07/17/21 17:28 Blast Cells # 0.0 K/mm3 07/17/21 17:28 WBC Morphology Not Reportable 07/17/21 17:28 WBC Morphology TNR 07/17/21 17:28 Hypersegmented Neuts Not Reportable 07/17/21 17:28 Hyposegmented Neuts Not Reportable 07/17/21 17:28 Hypogranular Neuts Not Reportable 07/17/21 17:28 Smudge Cells Not Reportable 07/17/21 17:28 Toxic Granulation Not Reportable 07/17/21 17:28 Toxic Vacuolation Not Reportable 07/17/21 17:28 Dohle Bodies Not Reportable 07/17/21 17:28 Pelger-Huet Anomaly Not Reportable 07/17/21 17:28 Alyssa Rods Not Reportable 07/17/21 17:28 Platelet Estimate Not Reportable 07/17/21 17:28 Clumped Platelets Not Reportable 07/17/21 17:28 Plt Clumps, EDTA Not Reportable 07/17/21 17:28 Large Platelets Not Reportable 07/17/21 17:28 Giant Platelets Not Reportable 07/17/21 17:28 Platelet Satelliting Not Reportable 07/17/21 17:28 Plt Morphology Comment Not Reportable 07/17/21 17:28 RBC Morphology Not Reportable 07/17/21 17:28 Dimorphic RBCs Not Reportable 07/17/21 17:28 Polychromasia Not Reportable 07/17/21 17:28 Hypochromasia Not Reportable 07/17/21 17:28 Poikilocytosis Not Reportable 07/17/21 17:28 Anisocytosis Few 07/17/21 17:28 Microcytosis Not Reportable 07/17/21 17:28 Macrocytosis Not Reportable 07/17/21 17:28 Spherocytes Not Reportable 07/17/21 17:28 Pappenheimer Bodies Not Reportable 07/17/21 17:28 Sickle Cells Not Reportable 07/17/21 17:28 Target Cells Not Reportable 07/17/21 17:28 Tear Drop Cells Not Reportable 07/17/21 17:28 Ovalocytes Not Reportable 07/17/21 17:28 Helmet Cells Not Reportable 07/17/21 17:28 [place] Bodies Not Reportable 07/17/21 17:28 [place] Rings Not Reportable 07/17/21 17:28 Andrew Cells Not Reportable 07/17/21 17:28 Bite Cells Not Reportable 07/17/21 17:28 Crenated Cell Not Reportable 07/17/21 17:28 Elliptocytes Not Reportable 07/17/21 17:28 Acanthocytes (Spur) Not Reportable 07/17/21 17:28 Rouleaux Not Reportable 07/17/21 17:28 Hemoglobin C Crystals Not Reportable 07/17/21 17:28 Schistocytes Not Reportable 07/17/21 17:28 Malaria parasites Not Reportable 07/17/21 17:28 Christiano Bodies Not Reportable 07/17/21 17:28 Hem Pathologist Commnt No 07/17/21 17:28 D-Dimer 768.76 ng/mlDDU (0-234) H 07/17/21 19:01 Sodium 138 mmol/L (137-145) D 07/19/21 03:48 Potassium 3.9 mmol/L (3.6-5.0) 07/19/21 03:48 Chloride 99.4 mmol/L (98-107) 07/19/21 03:48 Carbon Dioxide 23 mmol/L (22-30) 07/19/21 03:48 Anion Gap 20 mmol/L 07/19/21 03:48 BUN 24 mg/dL (9-20) H 07/19/21 03:48 Creatinine 0.8 mg/dL (0.8-1.3) 07/19/21 03:48 Estimated GFR > 60 ml/min 07/19/21 03:48 BUN/Creatinine Ratio 30 % 07/19/21 03:48 Glucose 154 mg/dL (75-100) H 07/19/21 03:48 Calcium 8.3 mg/dL (8.4-10.2) L 07/19/21 03:48 Ferritin 4694.0 ng/mL (30.0-300.0) H 07/17/21 19:01 Total Bilirubin 0.50 mg/dL (0.1-1.2) 07/18/21 04:03 AST 43 units/L (5-40) H 07/18/21 04:03 ALT 34 units/L (7-56) 07/18/21 04:03 Alkaline Phosphatase 78 units/L (35-129) 07/18/21 04:03 Lactate Dehydrogenase 629 units/L (91-180) H 07/17/21 19:01 C-Reactive Protein 7.40 mg/dL (0.00-1.30) H 07/17/21 19:01 Total Protein 6.2 g/dL (6.3-8.2) L 07/18/21 04:03 Albumin 2.8 g/dL (3.9-5) L 07/18/21 04:03 Albumin/Globulin Ratio 0.8 % 07/18/21 04:03 Procalcitonin 0.27 ng/mL (<0.15) 07/17/21 19:01 Coronavirus (PCR) Positive (Negative) A 07/18/21 09:10 HIV 1&2 Antibody Rapid Non react (Non React) 07/18/21 15:28 HIV P24 Antigen Non react (Non React) 07/18/21 15:28 Microbiology: Microbiology 07/17/21 17:28 Peripheral/Venous Blood Culture - Preliminary NO GROWTH AFTER 48 HOURS 07/17/21 17:28 Peripheral/Venous Blood Culture - Preliminary NO GROWTH AFTER 48 HOURS Active Medications - Current Medications Current Medications: Generic Name Dose Route Start Last Admin Trade Name Freq PRN Reason Stop Dose Admin Acetaminophen 650 mg 07/17/21 22:25 Acetaminophen 325 Mg Tab PO Q4H PRN Pain MILD(1-3)/Fever >100.5/KAUR Azithromycin 500 mg 07/20/21 10:00 07/20/21 11:17 Azithromycin 250 Mg Tab PO 07/22/21 10:01 500 mg QDAY LIZBET Administration Protocol Dexamethasone 8 mg 07/18/21 10:00 07/20/21 11:16 Dexamethasone 4 Mg/Ml Vial IV 07/27/21 10:01 8 mg Q24HR LIZBET Administration Enoxaparin Sodium 40 mg 07/18/21 10:00 07/20/21 11:17 Enoxaparin 40 Mg/0.4 Ml Inj SUB-Q 40 mg QDAY LIZBET Administration Famotidine 20 mg 07/17/21 23:00 07/20/21 11:17 Famotidine 20 Mg Tab PO 20 mg BID LIZBET Administration Ceftriaxone Sodium 2 gm in 100 mls @ 200 mls/hr 07/18/21 10:00 07/20/21 11:18 Rocephin/Ns 2 Gm/100 Ml IV 07/22/21 10:29 200 mls/hr Q24HR LIZBET Administration Protocol Metoclopramide HCl 10 mg 07/17/21 22:27 Metoclopramide 10 Mg/2 Ml Inj IV Q6H PRN Nausea And Vomiting Nystatin 500,000 unit 07/18/21 14:00 07/20/21 11:17 Nystatin 500,000 Unit/5 Ml Oral Liqd PO 500,000 unit QID LIZBET Administration Ondansetron HCl 4 mg 07/17/21 22:25 Ondansetron 4 Mg/2 Ml Inj IV Q8H PRN Nausea And Vomiting Oxycodone/Acetaminophen 1 tab 07/17/21 22:27 Oxycodone /Acetaminophen 5-325mg Tab PO Q6H PRN Pain, Moderate (4-6) Sodium Chloride 10 ml 07/18/21 10:00 07/20/21 11:18 Sodium Chloride 0.9% 10 Ml Flush Syringe IV 10 ml BID LIZBET Administration Sodium Chloride 10 ml 07/17/21 22:25 07/19/21 03:43 Sodium Chloride 0.9% 10 Ml Flush Syringe IV 10 ml PRN PRN Administration LINE FLUSH
[2021-07-21] MEDS: AZITHROMYCIN 250 MG TAB PO SCH (11:02)
[2021-07-21] MEDS: NYSTATIN 500,000 UNIT/5 ML ORAL LIQD PO SCH ×4 (11:02→21:19)
[2021-07-21] MEDS: ENOXAPARIN 40 MG/0.4 ML INJ SUB-Q SCH (11:02)
[2021-07-21] MEDS: cefTRIAXone/NS 2 GM/100 ML 2 GM/100 ML BAG IV SCH (11:03)
[2021-07-21] MEDS: FAMOTIDINE 20 MG TAB PO SCH ×2 (11:03→21:19)
[2021-07-21] MEDS: dexAMETHasone 4 MG/ML VIAL IV SCH (13:52)
--- NOTE | 2021-07-21 16:41 | Vascular Lab Report ---
DUPLEX DOPPLER LOWER EXTREMITY VEINS, BILATERAL INDICATION / CLINICAL INFORMATION: Elevated D-dimers/COVID-19/rule out DVT. TECHNIQUE: Duplex doppler imaging was performed through the veins of both lower extremities using nathaniel ous compression and other maneuvers. COMPARISON: None available. FINDINGS: RIGHT COMMON FEMORAL VEIN: Negative. RIGHT FEMORAL VEIN: Negative. RIGHT POPLITEAL VEIN: Negative. RIGHT CALF VEINS: Negative. LEFT COMMON FEMORAL VEIN: Negative. LEFT FEMORAL VEIN: Negative. LEFT POPLITEAL VEIN: Negative. LEFT CALF VEINS: Negative. ADDITIONAL FINDINGS: None. IMPRESSION: 1. No sonographic evidence for DVT in either lower extremity. Scribed by: Daksha Hwang RDMS, RVT Scribed: 07/21/2021 3:36 PM I have reviewed the images, agree with this report, and edited this report as needed. Signer Name: Temo Roger MD Signed: 07/21/2021 4:37 PM Workstation Name: [id number]
[2021-07-22] MEDS: cefTRIAXone/NS 2 GM/100 ML 2 GM/100 ML BAG IV SCH (11:04)
[2021-07-22] MEDS: AZITHROMYCIN 250 MG TAB PO SCH (11:05)
[2021-07-22] MEDS: DEXAMETHASONE 4 MG TAB PO SCH (11:05)
[2021-07-22] MEDS: NYSTATIN 500,000 UNIT/5 ML ORAL LIQD PO SCH ×4 (11:05→22:50)
[2021-07-22] MEDS: ENOXAPARIN 40 MG/0.4 ML INJ SUB-Q SCH (11:06)
[2021-07-22] MEDS: FAMOTIDINE 20 MG TAB PO SCH ×2 (11:07→23:30)
--- NOTE | 2021-07-22 19:43 | Progress Note ---
Assessment and Plan Assessment and plan: --Acute hypoxic respiratory failure On supplemental lung toxin 2 L Wean as tolerated Home O2 evaluation upon discharge --Bilateral pneumonia Pro Calcitonin level is high Continue empiric antibiotics Follow cultures --COVID-19 PUI/rosales PCR test is positive -Patient not requiring supplemental oxygen when evaluated today -Chest x-ray showed bilateral pneumonia -Continue with Cipro and Rocephin for now -Continue dexamethasone -Coronavirus PCR collected -D-dimer, LDH, CRP and ferritin elevated --Elevated D-dimer -CTA of chest negative for PE, multifocal/viral pneumonia Check lower extremity venous Doppler to rule out DVT --Oral thrush -Nystatin swish and swallow ordered -HIV negative test We will closely monitor the patient and adjust management as needed 6-minute walk test prior to discharge Home O2 evaluation prior to discharge Walk test show patient requires 2 to 3 L nasal cannula oxygen Discharge with home O2 if stable Plan of care reviewed with the patient and his nurse 07/22/2021; patient is on 2 L of nasal cannula oxygen, Request placed for home O2 set up, bilingual patient support caseworker processing Patient has no resources, plan to pay [id number] Possible discharge tomorrow when home oxygen is set up History Interval history: I have seen and examined the patient at the bedside Patient's chart and medications reviewed Patient complains of mild shortness of breath, on 2 L nasal cannula oxygen Hospitalist Physical - Constitutional Vitals: Temp Pulse Resp BP Pulse Ox 98.1 F 59 L 20 128/80 95 07/22/21 17:22 07/22/21 17:22 07/22/21 17:22 07/22/21 17:22 07/22/21 17:22 General appearance: Present: no acute distress, well-nourished - EENT Eyes: Present: PERRL, EOM intact - Neck Neck: Present: supple, normal ROM - Respiratory Respiratory effort: normal Respiratory: bilateral: diminished, negative: rales, rhonchi, wheezing - Cardiovascular Rhythm: regular Heart Sounds: Present: S1 & S2 - Extremities Extremities: no ischemia, No edema - Abdominal General gastrointestinal: soft, non-tender, non-distended, normal bowel sounds - Integumentary Integumentary: Present: clear, warm - Psychiatric Psychiatric: appropriate mood/affect, cooperative - Neurologic Neurologic: CNII-XII intact, moves all extremities Results - Labs CBC & Chem 7: 07/18/21 04:03 07/19/21 03:48 Labs: Laboratory Last Values WBC 3.7 K/mm3 (4.5-11.0) L 07/18/21 04:03 RBC 4.41 M/mm3 (3.65-5.03) 07/18/21 04:03 Hgb 13.9 gm/dl (11.8-15.2) 07/18/21 04:03 Hct 41.0 % (35.5-45.6) 07/18/21 04:03 MCV 93 fl (84-94) 07/18/21 04:03 MCH 32 pg (28-32) 07/18/21 04:03 MCHC 34 % (32-34) 07/18/21 04:03 RDW 12.4 % (13.2-15.2) L 07/18/21 04:03 Plt Count 262 K/mm3 (140-440) 07/18/21 04:03 Lymph % (Auto) 11.3 % (13.4-35.0) L 07/18/21 04:03 Walker % (Auto) 6.1 % (0.0-7.3) 07/18/21 04:03 Eos % (Auto) 0.0 % (0.0-4.3) 07/18/21 04:03 Baso % (Auto) 0.2 % (0.0-1.8) 07/18/21 04:03 Lymph # (Auto) 0.4 K/mm3 (1.2-5.4) L 07/18/21 04:03 [place] # (Auto) 0.2 K/mm3 (0.0-0.8) 07/18/21 04:03 Eos # (Auto) 0.0 K/mm3 (0.0-0.4) 07/18/21 04:03 Baso # (Auto) 0.0 K/mm3 (0.0-0.1) 07/18/21 04:03 Add Manual Diff Complete 07/17/21 17:28 Total Counted 100 07/17/21 17:28 Seg Neutrophils % 82.4 % (40.0-70.0) H 07/18/21 04:03 Seg Neuts % (Manual) 89.0 % (40.0-70.0) H 07/17/21 17:28 Band Neutrophils % 1.0 % 07/17/21 17:28 Lymphocytes % (Manual) 7.0 % (13.4-35.0) L 07/17/21 17:28 Reactive Lymphs % (Man) 0 % 07/17/21 17:28 Monocytes % (Manual) 3.0 % (0.0-7.3) 07/17/21 17: Eosinophils % (Manual) 0 % (0.0-4.3) 07/17/21 17: Basophils % (Manual) 0 % (0.0-1.8) 07/17/21 17:28 Metamyelocytes % 0 % 07/17/21 17: Myelocytes % 0 % 07/17/21 17: Promyelocytes % 0 % 07/17/21 17: Blast Cells % 0 % 07/17/21 17: Nucleated RBC % Not Reportable 07/17/21 17: Seg Neutrophils # 3.0 K/mm3 (1.8-7.7) 07/18/21 04:03 Seg Neutrophils # Man 4.5 K/mm3 (1.8-7.7) 07/17/21 17:28 Band Neutrophils # 0.1 K/mm3 07/17/21 17: Lymphocytes # (Manual) 0.4 K/mm3 (1.2-5.4) L 07/17/21 17:28 Abs React Lymphs (Man) 0.0 K/mm3 07/17/21 17:28 Monocytes # (Manual) 0.2 K/mm3 (0.0-0.8) 07/17/21 17: Eosinophils # (Manual) 0.0 K/mm3 (0.0-0.4) 07/17/21 17:28 Basophils # (Manual) 0.0 K/mm3 (0.0-0.1) 07/17/21 17: Metamyelocytes # 0.0 K/mm3 07/17/21 17: Myelocytes # 0.0 K/mm3 07/17/21 17: Promyelocytes # 0.0 K/mm3 07/17/21 17:28 Blast Cells # 0.0 K/mm3 07/17/21 17:28 WBC Morphology Not Reportable 07/17/21 17:28 WBC Morphology TNR 07/17/21 17:28 Hypersegmented Neuts Not Reportable 07/17/21 17:28 Hyposegmented Neuts Not Reportable 07/17/21 17:28 Hypogranular Neuts Not Reportable 07/17/21 17:28 Smudge Cells Not Reportable 07/17/21 17:28 Toxic Granulation Not Reportable 07/17/21 17:28 Toxic Vacuolation Not Reportable 07/17/21 17:28 Dohle Bodies Not Reportable 07/17/21 17:28 Pelger-Huet Anomaly Not Reportable 07/17/21 17:28 Alyssa Rods Not Reportable 07/17/21 17:28 Platelet Estimate Not Reportable 07/17/21 17:28 Clumped Platelets Not Reportable 07/17/21 17:28 Plt Clumps, EDTA Not Reportable 07/17/21 17:28 Large Platelets Not Reportable 07/17/21 17:28 Giant Platelets Not Reportable 07/17/21 17:28 Platelet Satelliting Not Reportable 07/17/21 17:28 Plt Morphology Comment Not Reportable 07/17/21 17:28 RBC Morphology Not Reportable 07/17/21 17:28 Dimorphic RBCs Not Reportable 07/17/21 17:28 Polychromasia Not Reportable 07/17/21 17:28 Hypochromasia Not Reportable 07/17/21 17:28 Poikilocytosis Not Reportable 07/17/21 17:28 Anisocytosis Few 07/17/21 17:28 Microcytosis Not Reportable 07/17/21 17:28 Macrocytosis Not Reportable 07/17/21 17:28 Spherocytes Not Reportable 07/17/21 17:28 Pappenheimer Bodies Not Reportable 07/17/21 17:28 Sickle Cells Not Reportable 07/17/21 17:28 Target Cells Not Reportable 07/17/21 17:28 Tear Drop Cells Not Reportable 07/17/21 17:28 Ovalocytes Not Reportable 07/17/21 17:28 Helmet Cells Not Reportable 07/17/21 17:28 [place] Bodies Not Reportable 07/17/21 17:28 [place] Rings Not Reportable 07/17/21 17:28 Andrew Cells Not Reportable 07/17/21 17:28 Bite Cells Not Reportable 07/17/21 17:28 Crenated Cell Not Reportable 07/17/21 17:28 Elliptocytes Not Reportable 07/17/21 17:28 Acanthocytes (Spur) Not Reportable 07/17/21 17:28 Rouleaux Not Reportable 07/17/21 17:28 Hemoglobin C Crystals Not Reportable 07/17/21 17:28 Schistocytes Not Reportable 07/17/21 17:28 Malaria parasites Not Reportable 07/17/21 17:28 Christiano Bodies Not Reportable 07/17/21 17:28 Hem Pathologist Commnt No 07/17/21 17:28 D-Dimer 768.76 ng/mlDDU (0-234) H 07/17/21 19:01 Sodium 138 mmol/L (137-145) D 07/19/21 03:48 Potassium 3.9 mmol/L (3.6-5.0) 07/19/21 03:48 Chloride 99.4 mmol/L (98-107) 07/19/21 03:48 Carbon Dioxide 23 mmol/L (22-30) 07/19/21 03:48 Anion Gap 20 mmol/L 07/19/21 03:48 BUN 24 mg/dL (9-20) H 07/19/21 03:48 Creatinine 0.8 mg/dL (0.8-1.3) 07/19/21 03:48 Estimated GFR > 60 ml/min 07/19/21 03:48 BUN/Creatinine Ratio 30 % 07/19/21 03:48 Glucose 154 mg/dL (75-100) H 07/19/21 03:48 Calcium 8.3 mg/dL (8.4-10.2) L 07/19/21 03:48 Ferritin 4694.0 ng/mL (30.0-300.0) H 07/17/21 19:01 Total Bilirubin 0.50 mg/dL (0.1-1.2) 07/18/21 04:03 AST 43 units/L (5-40) H 07/18/21 04:03 ALT 34 units/L (7-56) 07/18/21 04:03 Alkaline Phosphatase 78 units/L (35-129) 07/18/21 04:03 Lactate Dehydrogenase 629 units/L (91-180) H 07/17/21 19:01 C-Reactive Protein 7.40 mg/dL (0.00-1.30) H 07/17/21 19:01 Total Protein 6.2 g/dL (6.3-8.2) L 07/18/21 04:03 Albumin 2.8 g/dL (3.9-5) L 07/18/21 04:03 Albumin/Globulin Ratio 0.8 % 07/18/21 04:03 Procalcitonin 0.27 ng/mL (<0.15) 07/17/21 19:01 Coronavirus (PCR) Positive (Negative) A 07/18/21 09:10 HIV 1&2 Antibody Rapid Non react (Non React) 07/18/21 15:28 HIV P24 Antigen Non react (Non React) 07/18/21 15:28 Microbiology: Microbiology 07/17/21 17:28 Peripheral/Venous Blood Culture - Preliminary NO GROWTH AFTER 4 DAYS 07/17/21 17:28 Peripheral/Venous Blood Culture - Preliminary NO GROWTH AFTER 4 DAYS Taylor/IV: Voiding Method Toilet Active Medications - Current Medications Current Medications: Generic Name Dose Route Start Last Admin Trade Name Freq PRN Reason Stop Dose Admin Acetaminophen 650 mg 07/17/21 22:25 Acetaminophen 325 Mg Tab PO Q4H PRN Pain MILD(1-3)/Fever >100.5/KAUR Dexamethasone 8 mg 07/22/21 10:00 07/22/21 11:05 Dexamethasone 4 Mg Tab PO 07/27/21 10:59 8 mg DAILY LIZBET Administration Enoxaparin Sodium 40 mg 07/18/21 10:00 07/22/21 11:06 Enoxaparin 40 Mg/0.4 Ml Inj SUB-Q 40 mg QDAY LIZBET Administration Famotidine 20 mg 07/17/21 23:00 07/22/21 11:07 Famotidine 20 Mg Tab PO 20 mg BID LIZBET Administration Metoclopramide HCl 10 mg 07/17/21 22:27 Metoclopramide 10 Mg/2 Ml Inj IV Q6H PRN Nausea And Vomiting Nystatin 500,000 unit 07/18/21 14:00 07/22/21 18:16 Nystatin 500,000 Unit/5 Ml Oral Liqd PO 500,000 unit QID LIZBET Administration Ondansetron HCl 4 mg 07/17/21 22:25 Ondansetron 4 Mg/2 Ml Inj IV Q8H PRN Nausea And Vomiting Oxycodone/Acetaminophen 1 tab 07/17/21 22:27 Oxycodone /Acetaminophen 5-325mg Tab PO Q6H PRN Pain, Moderate (4-6) Sodium Chloride 10 ml 07/18/21 10:00 07/22/21 11:07 Sodium Chloride 0.9% 10 Ml Flush Syringe IV 10 ml BID LIZBET Administration Sodium Chloride 10 ml 07/17/21 22:25 07/19/21 03:43 Sodium Chloride 0.9% 10 Ml Flush Syringe IV 10 ml PRN PRN Administration LINE FLUSH
--- NOTE | 2021-07-22 19:51 | Progress Note ---
Assessment and Plan Assessment and plan: --Acute hypoxic respiratory failure On supplemental lung toxin 2 L Wean as tolerated Home O2 evaluation upon discharge --Bilateral pneumonia Pro Calcitonin level is high Continue empiric antibiotics Follow cultures --COVID-19 PUI/rosales PCR test is positive -Patient not requiring supplemental oxygen when evaluated today -Chest x-ray showed bilateral pneumonia -Continue with Cipro and Rocephin for now -Continue dexamethasone -Coronavirus PCR collected -D-dimer, LDH, CRP and ferritin elevated --Elevated D-dimer -CTA of chest negative for PE, multifocal/viral pneumonia Check lower extremity venous Doppler to rule out DVT --Oral thrush -Nystatin swish and swallow ordered -HIV negative test We will closely monitor the patient and adjust management as needed 6-minute walk test prior to discharge Home O2 evaluation prior to discharge Discharge in 1 to 2 days if stable Plan of care reviewed with the patient and his nurse Home O2 evaluation, possible discharge tomorrow if stable History Interval history: -I have seen and examined the patient at the bedside Patient's chart and medications reviewed No new complaints Hospitalist Physical - Constitutional Vitals: Temp Pulse Resp BP Pulse Ox 98.1 F 59 L 20 128/80 95 07/22/21 17:22 07/22/21 17:22 07/22/21 17:22 07/22/21 17:22 07/22/21 17:22 General appearance: Present: mild distress, well-nourished - EENT Eyes: Present: PERRL, EOM intact - Neck Neck: Present: supple, normal ROM - Respiratory Respiratory effort: normal Respiratory: bilateral: diminished, negative: rales, rhonchi, wheezing - Cardiovascular Rhythm: regular Heart Sounds: Present: S1 & S2 - Extremities Extremities: no ischemia, No edema - Abdominal General gastrointestinal: soft, non-tender, non-distended, normal bowel sounds - Integumentary Integumentary: Present: clear, warm - Psychiatric Psychiatric: appropriate mood/affect, cooperative - Neurologic Neurologic: moves all extremities Results - Labs CBC & Chem 7: 07/18/21 04:03 07/19/21 03:48 Labs: Laboratory Last Values WBC 3.7 K/mm3 (4.5-11.0) L 07/18/21 04:03 RBC 4.41 M/mm3 (3.65-5.03) 07/18/21 04:03 Hgb 13.9 gm/dl (11.8-15.2) 07/18/21 04:03 Hct 41.0 % (35.5-45.6) 07/18/21 04:03 MCV 93 fl (84-94) 07/18/21 04:03 MCH 32 pg (28-32) 07/18/21 04:03 MCHC 34 % (32-34) 07/18/21 04:03 RDW 12.4 % (13.2-15.2) L 07/18/21 04:03 Plt Count 262 K/mm3 (140-440) 07/18/21 04:03 Lymph % (Auto) 11.3 % (13.4-35.0) L 07/18/21 04:03 [place] % (Auto) 6.1 % (0.0-7.3) 07/18/21 04:03 Eos % (Auto) 0.0 % (0.0-4.3) 07/18/21 04:03 Baso % (Auto) 0.2 % (0.0-1.8) 07/18/21 04:03 Lymph # (Auto) 0.4 K/mm3 (1.2-5.4) L 07/18/21 04:03 [place] # (Auto) 0.2 K/mm3 (0.0-0.8) 07/18/21 04:03 Eos # (Auto) 0.0 K/mm3 (0.0-0.4) 07/18/21 04:03 Baso # (Auto) 0.0 K/mm3 (0.0-0.1) 07/18/21 04:03 Add Manual Diff Complete 07/17/21 17:28 Total Counted 100 07/17/21 17:28 Seg Neutrophils % 82.4 % (40.0-70.0) H 07/18/21 04:03 Seg Neuts % (Manual) 89.0 % (40.0-70.0) H 07/17/21 17:28 Band Neutrophils % 1.0 % 07/17/21 17:28 Lymphocytes % (Manual) 7.0 % (13.4-35.0) L 07/17/21 17:28 Reactive Lymphs % (Man) 0 % 07/17/21 17:28 Monocytes % (Manual) 3.0 % (0.0-7.3) 07/17/21 17:28 Eosinophils % (Manual) 0 % (0.0-4.3) 07/17/21 17:28 Basophils % (Manual) 0 % (0.0-1.8) 07/17/21 17:28 Metamyelocytes % 0 % 07/17/21 17:28 Myelocytes % 0 % 07/17/21 17:28 Promyelocytes % 0 % 07/17/21 17:28 Blast Cells % 0 % 07/17/21 17:28 Nucleated RBC % Not Reportable 07/17/21 17:28 Seg Neutrophils # 3.0 K/mm3 (1.8-7.7) 07/18/21 04:03 Seg Neutrophils # Man 4.5 K/mm3 (1.8-7.7) 07/17/21 17:28 Band Neutrophils # 0.1 K/mm3 07/17/21 17:28 Lymphocytes # (Manual) 0.4 K/mm3 (1.2-5.4) L 07/17/21 17:28 Abs React Lymphs (Man) 0.0 K/mm3 07/17/21 17:28 Monocytes # (Manual) 0.2 K/mm3 (0.0-0.8) 07/17/21 17:28 Eosinophils # (Manual) 0.0 K/mm3 (0.0-0.4) 07/17/21 17:28 Basophils # (Manual) 0.0 K/mm3 (0.0-0.1) 07/17/21 17:28 Metamyelocytes # 0.0 K/mm3 07/17/21 17:28 Myelocytes # 0.0 K/mm3 07/17/21 17:28 Promyelocytes # 0.0 K/mm3 07/17/21 17:28 Blast Cells # 0.0 K/mm3 07/17/21 17:28 WBC Morphology Not Reportable 07/17/21 17:28 WBC Morphology TNR 07/17/21 17:28 Hypersegmented Neuts Not Reportable 07/17/21 17:28 Hyposegmented Neuts Not Reportable 07/17/21 17:28 Hypogranular Neuts Not Reportable 07/17/21 17:28 Smudge Cells Not Reportable 07/17/21 17:28 Toxic Granulation Not Reportable 07/17/21 17:28 Toxic Vacuolation Not Reportable 07/17/21 17:28 Dohle Bodies Not Reportable 07/17/21 17:28 Pelger-Huet Anomaly Not Reportable 07/17/21 17:28 Alyssa Rods Not Reportable 07/17/21 17:28 Platelet Estimate Not Reportable 07/17/21 17:28 Clumped Platelets Not Reportable 07/17/21 17:28 Plt Clumps, EDTA Not Reportable 07/17/21 17:28 Large Platelets Not Reportable 07/17/21 17:28 Giant Platelets Not Reportable 07/17/21 17:28 Platelet Satelliting Not Reportable 07/17/21 17:28 Plt Morphology Comment Not Reportable 07/17/21 17:28 RBC Morphology Not Reportable 07/17/21 17:28 Dimorphic RBCs Not Reportable 07/17/21 17:28 Polychromasia Not Reportable 07/17/21 17:28 Hypochromasia Not Reportable 07/17/21 17:28 Poikilocytosis Not Reportable 07/17/21 17:28 Anisocytosis Few 07/17/21 17:28 Microcytosis Not Reportable 07/17/21 17:28 Macrocytosis Not Reportable 07/17/21 17:28 Spherocytes Not Reportable 07/17/21 17:28 Pappenheimer Bodies Not Reportable 07/17/21 17:28 Sickle Cells Not Reportable 07/17/21 17:28 Target Cells Not Reportable 07/17/21 17:28 Tear Drop Cells Not Reportable 07/17/21 17:28 Ovalocytes Not Reportable 07/17/21 17:28 Helmet Cells Not Reportable 07/17/21 17:28 Corrales-Mertens Bodies Not Reportable 07/17/21 17:28 [place] Rings Not Reportable 07/17/21 17:28 Andrew Cells Not Reportable 07/17/21 17:28 Bite Cells Not Reportable 07/17/21 17:28 Crenated Cell Not Reportable 07/17/21 17:28 Elliptocytes Not Reportable 07/17/21 17:28 Acanthocytes (Spur) Not Reportable 07/17/21 17:28 Rouleaux Not Reportable 07/17/21 17:28 Hemoglobin C Crystals Not Reportable 07/17/21 17:28 Schistocytes Not Reportable 07/17/21 17:28 Malaria parasites Not Reportable 07/17/21 17:28 Christiano Bodies Not Reportable 07/17/21 17:28 Hem Pathologist Commnt No 07/17/21 17:28 D-Dimer 768.76 ng/mlDDU (0-234) H 07/17/21 19:01 Sodium 138 mmol/L (137-145) D 07/19/21 03:48 Potassium 3.9 mmol/L (3.6-5.0) 07/19/21 03:48 Chloride 99.4 mmol/L (98-107) 07/19/21 03:48 Carbon Dioxide 23 mmol/L (22-30) 07/19/21 03:48 Anion Gap 20 mmol/L 07/19/21 03:48 BUN 24 mg/dL (9-20) H 07/19/21 03:48 Creatinine 0.8 mg/dL (0.8-1.3) 07/19/21 03:48 Estimated GFR > 60 ml/min 07/19/21 03:48 BUN/Creatinine Ratio 30 % 07/19/21 03:48 Glucose 154 mg/dL (75-100) H 07/19/21 03:48 Calcium 8.3 mg/dL (8.4-10.2) L 07/19/21 03:48 Ferritin 4694.0 ng/mL (30.0-300.0) H 07/17/21 19:01 Total Bilirubin 0.50 mg/dL (0.1-1.2) 07/18/21 04:03 AST 43 units/L (5-40) H 07/18/21 04:03 ALT 34 units/L (7-56) 07/18/21 04:03 Alkaline Phosphatase 78 units/L (35-129) 07/18/21 04:03 Lactate Dehydrogenase 629 units/L (91-180) H 07/17/21 19:01 C-Reactive Protein 7.40 mg/dL (0.00-1.30) H 07/17/21 19:01 Total Protein 6.2 g/dL (6.3-8.2) L 07/18/21 04:03 Albumin 2.8 g/dL (3.9-5) L 07/18/21 04:03 Albumin/Globulin Ratio 0.8 % 07/18/21 04:03 Procalcitonin 0.27 ng/mL (<0.15) 07/17/21 19:01 Coronavirus (PCR) Positive (Negative) A 07/18/21 09:10 HIV 1&2 Antibody Rapid Non react (Non React) 07/18/21 15:28 HIV P24 Antigen Non react (Non React) 07/18/21 15:28 Microbiology: Microbiology 07/17/21 17:28 Peripheral/Venous Blood Culture - Preliminary NO GROWTH AFTER 4 DAYS 07/17/21 17:28 Peripheral/Venous Blood Culture - Preliminary NO GROWTH AFTER 4 DAYS Taylor/IV: Voiding Method Toilet Active Medications - Current Medications Current Medications: Generic Name Dose Route Start Last Admin Trade Name Freq PRN Reason Stop Dose Admin Acetaminophen 650 mg 07/17/21 22:25 Acetaminophen 325 Mg Tab PO Q4H PRN Pain MILD(1-3)/Fever >100.5/KAUR Dexamethasone 8 mg 07/22/21 10:00 07/22/21 11:05 Dexamethasone 4 Mg Tab PO 07/27/21 10:59 8 mg DAILY LIZBET Administration Enoxaparin Sodium 40 mg 07/18/21 10:00 07/22/21 11:06 Enoxaparin 40 Mg/0.4 Ml Inj SUB-Q 40 mg QDAY LIZBET Administration Famotidine 20 mg 07/17/21 23:00 07/22/21 11:07 Famotidine 20 Mg Tab PO 20 mg BID LIZBET Administration Metoclopramide HCl 10 mg 07/17/21 22:27 Metoclopramide 10 Mg/2 Ml Inj IV Q6H PRN Nausea And Vomiting Nystatin 500,000 unit 07/18/21 14:00 07/22/21 18:16 Nystatin 500,000 Unit/5 Ml Oral Liqd PO 500,000 unit QID LIZBET Administration Ondansetron HCl 4 mg 07/17/21 22:25 Ondansetron 4 Mg/2 Ml Inj IV Q8H PRN Nausea And Vomiting Oxycodone/Acetaminophen 1 tab 07/17/21 22:27 Oxycodone /Acetaminophen 5-325mg Tab PO Q6H PRN Pain, Moderate (4-6) Sodium Chloride 10 ml 07/18/21 10:00 07/22/21 11:07 Sodium Chloride 0.9% 10 Ml Flush Syringe IV 10 ml BID LIZBET Administration Sodium Chloride 10 ml 07/17/21 22:25 07/19/21 03:43 Sodium Chloride 0.9% 10 Ml Flush Syringe IV 10 ml PRN PRN Administration LINE FLUSH
[2021-07-23] MEDS: FAMOTIDINE 20 MG TAB PO SCH ×2 (09:33→22:37)
[2021-07-23] MEDS: ENOXAPARIN 40 MG/0.4 ML INJ SUB-Q SCH (09:33)
[2021-07-23] MEDS: DEXAMETHASONE 4 MG TAB PO SCH (09:33)
[2021-07-23] MEDS: NYSTATIN 500,000 UNIT/5 ML ORAL LIQD PO SCH ×4 (09:34→22:37)
--- NOTE | 2021-07-23 10:02 | Discharge Summary ---
Providers - Providers Date of Admission: 07/17/21 19:11 Date of discharge: 07/23/21 Attending physician: JERRY RICO Primary care physician: [employer] Hospitalization Condition: Fair Hospital course: --Acute hypoxic respiratory failure On supplemental lung toxin 2 L Wean as tolerated Home O2 evaluation upon discharge --Bilateral pneumonia Pro Calcitonin level is high Continue empiric antibiotics Follow cultures --COVID-19 PUI/rosales PCR test is positive -Patient not requiring supplemental oxygen when evaluated today -Chest x-ray showed bilateral pneumonia -Continue with Cipro and Rocephin for now -Continue dexamethasone -Coronavirus PCR collected -D-dimer, LDH, CRP and ferritin elevated --Elevated D-dimer -CTA of chest negative for PE, multifocal/viral pneumonia Check lower extremity venous Doppler to rule out DVT --Oral thrush -Nystatin swish and swallow ordered -HIV negative test We will closely monitor the patient and adjust management as needed 6-minute walk test prior to discharge Home O2 evaluation prior to discharge Walk test show patient requires 2 to 3 L nasal cannula oxygen Discharge with home O2 if stable Plan of care reviewed with the patient and his nurse 07/22/2021; patient is on 2 L of nasal cannula oxygen, Request placed for home O2 set up, case folder processing Patient has no resources, plan to pay [id number] Patient clinically stable for discharge On 2 L nasal cannula oxygen Disposition per case management Disposition: 06 HOME HEALTH CARE SERVICE Final Discharge Diagnosis (Prints w/discharge instructions): Acute hypoxic respiratory failure. 2 L of supplemental oxygen. Bilateral pneumonia improved. COVID-19 infection elevated D-dimers. Negative PE negative DVT. Oral thrush improved possible discharge home on home oxygen Exam - Constitutional Vitals: Temp Pulse Resp BP Pulse Ox 97.5 F L 48 L 19 139/92 97 07/23/21 04:40 07/23/21 04:40 07/23/21 04:40 07/23/21 04:40 07/23/21 04:40 Plan Activity: advance as tolerated Diet: regular Special Instructions: home oxygen via (3 L via nasal cannula) Additional Instructions: Advised to follow COVID-19 precautions and protocols per CDC guidelines as explained by the discharge nurse. Use 3 L of nasal cannula oxygen as needed. If you have worsening symptoms contact MD or go to the nearest emergency room Follow up with: PRIMARY CARE, [Primary Care Provider] - 3-5 Days Prescriptions: dexAMETHasone [Decadron] 8 mg PO DAILY #4 tablet Nystatin [Nystatin SUSP] 500,000 unit PO QID 14 Days #1 bottle Famotidine [Pepcid] 20 mg PO BID #30 tablet Albuterol Mdi (or & Nicu Only) [ProAir HFA Inhaler] 2 puff IH QID PRN #8.5 gram PRN Reason: Shortness Of Breath Ascorbic Acid [Vitamin C chew] 500 mg PO BID #30 Cholecalciferol Vit D3 [Vitamin D3 1,000 UNIT TAB] 1,000 unit PO QDAY #15 tablet Zinc Sulfate 0 mg PO DAILY #15 capsule
--- NOTE | 2021-07-24 09:02 | Progress Note ---
Assessment and Plan Assessment and plan: --Acute hypoxic respiratory failure On supplemental lung toxin 2 L Wean as tolerated Home O2 evaluation upon discharge --Bilateral pneumonia Pro Calcitonin level is high Continue empiric antibiotics Follow cultures --COVID-19 PUI/rosales PCR test is positive -Patient not requiring supplemental oxygen when evaluated today -Chest x-ray showed bilateral pneumonia -Continue with Cipro and Rocephin for now -Continue dexamethasone -Coronavirus PCR collected -D-dimer, LDH, CRP and ferritin elevated --Elevated D-dimer -CTA of chest negative for PE, multifocal/viral pneumonia Check lower extremity venous Doppler to rule out DVT --Oral thrush -Nystatin swish and swallow ordered -HIV negative test We will closely monitor the patient and adjust management as needed 6-minute walk test prior to discharge Home O2 evaluation prior to discharge Walk test show patient requires 2 to 3 L nasal cannula oxygen Discharge with home O2 if stable Plan of care reviewed with the patient and his nurse 07/22/2021; patient is on 2 L of nasal cannula oxygen, Request placed for home O2 set up, manager of case management processing Patient has no resources, plan to pay [id number] Possible discharge tomorrow when home oxygen is set up 07/24/2021; patient was discharged yesterday Unable to leave due to home O2 arrangement History Interval history: I have seen and examined the patient Patient feels better anxious to go home Placement renal she will discharge on oxygen Vital signs reviewed Hospitalist Physical - Constitutional Vitals: Temp Pulse Resp BP Pulse Ox 98.0 F 48 L 18 133/85 94 07/24/21 04:45 07/24/21 04:45 07/24/21 04:45 07/24/21 04:45 07/24/21 04:45 General appearance: Present: mild distress, well-nourished - EENT Eyes: Present: PERRL, EOM intact - Neck Neck: Present: supple, normal ROM - Respiratory Respiratory effort: normal Respiratory: bilateral: diminished, negative: rales, rhonchi, wheezing - Cardiovascular Rhythm: regular Heart Sounds: Present: S1 & S2 - Extremities Extremities: no ischemia, No edema - Abdominal General gastrointestinal: soft, non-tender, non-distended, normal bowel sounds - Integumentary Integumentary: Present: clear, warm - Psychiatric Psychiatric: appropriate mood/affect, cooperative - Neurologic Neurologic: CNII-XII intact, moves all extremities Results - Labs CBC & Chem 7: 07/18/21 04:03 07/19/21 03:48 Labs: Laboratory Last Values WBC 3.7 K/mm3 (4.5-11.0) L 07/18/21 04:03 RBC 4.41 M/mm3 (3.65-5.03) 07/18/21 04:03 Hgb 13.9 gm/dl (11.8-15.2) 07/18/21 04:03 Hct 41.0 % (35.5-45.6) 07/18/21 04:03 MCV 93 fl (84-94) 07/18/21 04:03 MCH 32 pg (28-32) 07/18/21 04:03 MCHC 34 % (32-34) 07/18/21 04:03 RDW 12.4 % (13.2-15.2) L 07/18/21 04:03 Plt Count 262 K/mm3 (140-440) 07/18/21 04:03 Lymph % (Auto) 11.3 % (13.4-35.0) L 07/18/21 04:03 [place] % (Auto) 6.1 % (0.0-7.3) 07/18/21 04:03 Eos % (Auto) 0.0 % (0.0-4.3) 07/18/21 04:03 Baso % (Auto) 0.2 % (0.0-1.8) 07/18/21 04:03 Lymph # (Auto) 0.4 K/mm3 (1.2-5.4) L 07/18/21 04:03 [place] # (Auto) 0.2 K/mm3 (0.0-0.8) 07/18/21 04:03 Eos # (Auto) 0.0 K/mm3 (0.0-0.4) 07/18/21 04:03 Baso # (Auto) 0.0 K/mm3 (0.0-0.1) 07/18/21 04:03 Add Manual Diff Complete 07/17/21 17:28 Total Counted 100 07/17/21 17:28 Seg Neutrophils % 82.4 % (40.0-70.0) H 07/18/21 04:03 Seg Neuts % (Manual) 89.0 % (40.0-70.0) H 07/17/21 17:28 Band Neutrophils % 1.0 % 07/17/21 17:28 Lymphocytes % (Manual) 7.0 % (13.4-35.0) L 07/17/21 17:28 Reactive Lymphs % (Man) 0 % 07/17/21 17:28 Monocytes % (Manual) 3.0 % (0.0-7.3) 07/17/21 17: Eosinophils % (Manual) 0 % (0.0-4.3) 07/17/21 17: Basophils % (Manual) 0 % (0.0-1.8) 07/17/21 17: Metamyelocytes % 0 % 07/17/21 17: Myelocytes % 0 % 07/17/21 17: Promyelocytes % 0 % 07/17/21 17: Blast Cells % 0 % 07/17/21 17: Nucleated RBC % Not Reportable 07/17/21 17:28 Seg Neutrophils # 3.0 K/mm3 (1.8-7.7) 07/18/21 04:03 Seg Neutrophils # Man 4.5 K/mm3 (1.8-7.7) 07/17/21 17: Band Neutrophils # 0.1 K/mm3 07/17/21 17: Lymphocytes # (Manual) 0.4 K/mm3 (1.2-5.4) L 07/17/21 17:28 Abs React Lymphs (Man) 0.0 K/mm3 07/17/21 17: Monocytes # (Manual) 0.2 K/mm3 (0.0-0.8) 07/17/21 17:28 Eosinophils # (Manual) 0.0 K/mm3 (0.0-0.4) 07/17/21 17:28 Basophils # (Manual) 0.0 K/mm3 (0.0-0.1) 07/17/21 17: Metamyelocytes # 0.0 K/mm3 07/17/21 17:28 Myelocytes # 0.0 K/mm3 07/17/21 17:28 Promyelocytes # 0.0 K/mm3 07/17/21 17: Blast Cells # 0.0 K/mm3 07/17/21 17:28 WBC Morphology Not Reportable 07/17/21 17:28 WBC Morphology TNR 07/17/21 17:28 Hypersegmented Neuts Not Reportable 07/17/21 17:28 Hyposegmented Neuts Not Reportable 07/17/21 17:28 Hypogranular Neuts Not Reportable 07/17/21 17:28 Smudge Cells Not Reportable 07/17/21 17:28 Toxic Granulation Not Reportable 07/17/21 17:28 Toxic Vacuolation Not Reportable 07/17/21 17:28 Dohle Bodies Not Reportable 07/17/21 17:28 Pelger-Huet Anomaly Not Reportable 07/17/21 17:28 Alyssa Rods Not Reportable 07/17/21 17:28 Platelet Estimate Not Reportable 07/17/21 17:28 Clumped Platelets Not Reportable 07/17/21 17:28 Plt Clumps, EDTA Not Reportable 07/17/21 17:28 Large Platelets Not Reportable 07/17/21 17:28 Giant Platelets Not Reportable 07/17/21 17:28 Platelet Satelliting Not Reportable 07/17/21 17:28 Plt Morphology Comment Not Reportable 07/17/21 17:28 RBC Morphology Not Reportable 07/17/21 17:28 Dimorphic RBCs Not Reportable 07/17/21 17:28 Polychromasia Not Reportable 07/17/21 17:28 Hypochromasia Not Reportable 07/17/21 17:28 Poikilocytosis Not Reportable 07/17/21 17:28 Anisocytosis Few 07/17/21 17:28 Microcytosis Not Reportable 07/17/21 17:28 Macrocytosis Not Reportable 07/17/21 17:28 Spherocytes Not Reportable 07/17/21 17:28 Pappenheimer Bodies Not Reportable 07/17/21 17:28 Sickle Cells Not Reportable 07/17/21 17:28 Target Cells Not Reportable 07/17/21 17:28 Tear Drop Cells Not Reportable 07/17/21 17:28 Ovalocytes Not Reportable 07/17/21 17:28 Helmet Cells Not Reportable 07/17/21 17:28 Corrales-Kenvir Bodies Not Reportable 07/17/21 17:28 [place] Rings Not Reportable 07/17/21 17:28 Andrew Cells Not Reportable 07/17/21 17:28 Bite Cells Not Reportable 07/17/21 17:28 Crenated Cell Not Reportable 07/17/21 17:28 Elliptocytes Not Reportable 07/17/21 17:28 Acanthocytes (Spur) Not Reportable 07/17/21 17:28 Rouleaux Not Reportable 07/17/21 17:28 Hemoglobin C Crystals Not Reportable 07/17/21 17:28 Schistocytes Not Reportable 07/17/21 17:28 Malaria parasites Not Reportable 07/17/21 17:28 Christiano Bodies Not Reportable 07/17/21 17:28 Hem Pathologist Commnt No 07/17/21 17:28 D-Dimer 768.76 ng/mlDDU (0-234) H 07/17/21 19:01 Sodium 138 mmol/L (137-145) D 07/19/21 03:48 Potassium 3.9 mmol/L (3.6-5.0) 07/19/21 03:48 Chloride 99.4 mmol/L (98-107) 07/19/21 03:48 Carbon Dioxide 23 mmol/L (22-30) 07/19/21 03:48 Anion Gap 20 mmol/L 07/19/21 03:48 BUN 24 mg/dL (9-20) H 07/19/21 03:48 Creatinine 0.8 mg/dL (0.8-1.3) 07/19/21 03:48 Estimated GFR > 60 ml/min 07/19/21 03:48 BUN/Creatinine Ratio 30 % 07/19/21 03:48 Glucose 154 mg/dL (75-100) H 07/19/21 03:48 Calcium 8.3 mg/dL (8.4-10.2) L 07/19/21 03:48 Ferritin 4694.0 ng/mL (30.0-300.0) H 07/17/21 19:01 Total Bilirubin 0.50 mg/dL (0.1-1.2) 07/18/21 04:03 AST 43 units/L (5-40) H 07/18/21 04:03 ALT 34 units/L (7-56) 07/18/21 04:03 Alkaline Phosphatase 78 units/L (35-129) 07/18/21 04:03 Lactate Dehydrogenase 629 units/L (91-180) H 07/17/21 19:01 C-Reactive Protein 7.40 mg/dL (0.00-1.30) H 07/17/21 19:01 Total Protein 6.2 g/dL (6.3-8.2) L 07/18/21 04:03 Albumin 2.8 g/dL (3.9-5) L 07/18/21 04:03 Albumin/Globulin Ratio 0.8 % 07/18/21 04:03 Procalcitonin 0.27 ng/mL (<0.15) 07/17/21 19:01 Coronavirus (PCR) Positive (Negative) A 07/18/21 09:10 HIV 1&2 Antibody Rapid Non react (Non React) 07/18/21 15:28 HIV P24 Antigen Non react (Non React) 07/18/21 15:28 Taylor/IV: Voiding Method Toilet Active Medications - Current Medications Current Medications: Generic Name Dose Route Start Last Admin Trade Name Freq PRN Reason Stop Dose Admin Acetaminophen 650 mg 07/17/21 22:25 Acetaminophen 325 Mg Tab PO Q4H PRN Pain MILD(1-3)/Fever >100.5/KAUR Dexamethasone 8 mg 07/22/21 10:00 07/23/21 09:33 Dexamethasone 4 Mg Tab PO 07/27/21 10:59 8 mg DAILY LIZBET Administration Enoxaparin Sodium 40 mg 07/18/21 10:00 07/23/21 09:33 Enoxaparin 40 Mg/0.4 Ml Inj SUB-Q 40 mg QDAY LIZBET Administration Famotidine 20 mg 07/17/21 23:00 07/23/21 22:37 Famotidine 20 Mg Tab PO 20 mg BID LIZBET Administration Metoclopramide HCl 10 mg 07/17/21 22:27 Metoclopramide 10 Mg/2 Ml Inj IV Q6H PRN Nausea And Vomiting Nystatin 500,000 unit 07/18/21 14:00 07/23/21 22:37 Nystatin 500,000 Unit/5 Ml Oral Liqd PO 500,000 unit QID LIZBET Administration Ondansetron HCl 4 mg 07/17/21 22:25 Ondansetron 4 Mg/2 Ml Inj IV Q8H PRN Nausea And Vomiting Oxycodone/Acetaminophen 1 tab 01/08/22 22:27 Oxycodone /Acetaminophen 5-325mg Tab PO Q6H PRN Pain, Moderate (4-6) Sodium Chloride 10 ml 07/18/21 10:00 07/23/21 22:38 Sodium Chloride 0.9% 10 Ml Flush Syringe IV 10 ml BID LIZBET Administration Sodium Chloride 10 ml 07/17/21 22:25 07/19/21 03:43 Sodium Chloride 0.9% 10 Ml Flush Syringe IV 10 ml PRN PRN Administration LINE FLUSH Nutrition/Malnutrition Assess - Dietary Evaluation Nutrition/Malnutrition Findings: Nutrition Notes Start: 07/23/21 12:19 Freq: Status: Active Protocol: Document 07/23/21 12:19 ABDELRAHMAN (Rec: 07/23/21 12:34 ABDELRAHMAN [id number]) Nutrition Notes Need for Assessment generated from: LOS Initial or Follow up Assessment Current Diagnosis Respiratory Failure Other Pertinent Diagnosis COVID-19, Bilateral Pneumonia, Elev D-dimer, Oral Thrush. Current Diet Regular Diet (since B 07/18). Labs/Tests 07/23: N/A. Pertinent Medications 07/23: Nutritionally unremarkable. Height 5 ft 7 in Weight 74.3 kg [place] Body Weight (kg) 67.27 BMI 25.6 Intake Prior to Admission Good Weight change and time frame Pt stes not havin loss body weight [employer]. Weight Status Overweight Subjective/Other Information RD consult for LOS assessment. Pt's PO intake of meals has been Good (100%), according to ADL notes. Pt is ready to be discharged with 2-3 L of home O2 nasal canula, after being evaluated a 2 min walking test. Percent of energy/protein needs met: Prescribed Regular Diet provides for energy/protein needs (2,289 Kcal/89 g) during LOS. Burn Absent Trauma Absent GI Symptoms None Food Allergy No Skin Integrity/Comment Clear, warm, dry. Current % PO Good (75-100%) Minimum of two criteria No Is patient on ventilator? No Is Patient Ambulatory and/or Out of Bed Yes REE-([place]-St. Jeor-ambulatory/OOB) [ [id number] [id number]] Kcal/Kg value to use for calculation 20 Approximate Energy Requirements Using 1486 kcal/Kg Calculation Used for Recommendations Kcal/kg Additional Notes Protein: 0.8-1 g/Kg; 59-74 g/ day. Fluids: 1 ml/Kcal, or as per MD. Nutrition Intervention Change Diet Order: Continue Regular Diet. Revisit per MD consult or patient Sign Off request: Additional Comments Continue monitoring food tolerance, %PO intake of meals , and BM.
[2021-07-24] MEDS: DEXAMETHASONE 4 MG TAB PO SCH (09:38)
[2021-07-24] MEDS: NYSTATIN 500,000 UNIT/5 ML ORAL LIQD PO SCH ×2 (09:38→13:50)
[2021-07-24] MEDS: FAMOTIDINE 20 MG TAB PO SCH (09:38)
[2021-07-24] MEDS: ENOXAPARIN 40 MG/0.4 ML INJ SUB-Q SCH (09:38)
[2021-07-24 11:57] VITALS: BP 107/72
== END 2021-07-24 14:57 | disposition home or self-care (01) | DRG 177 ==
LOC: ED 16:26 → 3A 19:11
PROVIDERS: ADMIT Internal Medicine; ATTEND Internal Medicine
DX: U07.1 COVID-19 (principal); J12.82 Pneumonia due to coronavirus disease 2019; J96.01 Acute respiratory failure with hypoxia; R65.10 Systemic inflammatory response syndrome (SIRS) of non-infectious origin without acute organ dysfunction; E87.1 Hypo-osmolality and hyponatremia; B37.0 Candidal stomatitis
CPT/HCPCS: 36415; 71046; 71275; 80048; 80053; 82728; 82947; 83615; 84145; 85007; 85025; 85379; 86140; 87040; 87806; 93970; 94760; G0378; J0456; J0696; J1100; J1650; J8540; Q9967; U0003